=== PATIENT | male | born 1975 | race Caucasian/White ===

== ENCOUNTER 2021-07-09 05:50 | Inpatient (IN) | payer OTHER, SELFPAY ==
[2021-07-09] VITALS (40 sets, daily range): BP systolic 88–159; BP diastolic 54–104; PULSE 63–76; RESP 9–23; TEMP 36.7–37.3; O2SAT 95–100; BMI 29.7
--- NOTE | ~2021-07-09 | XR_ITS ---
XR chest 1V portable DATE: 07/09/2021 06:09 INDICATION: Chest pain TECHNIQUE: Portable upright AP chest on 07/09/2021 at 0603 hours COMPARISON: 06/08/2017 PA and lateral chest FINDINGS: Normal heart size. No hilar or mediastinal enlargement. No pulmonary infiltrate or consolid ation, pleural effusion or pulmonary vascular congestion or pneumothorax. IMPRESSION: No active cardiopulmonary disease Reviewed, dictated and finalized at location A.
--- NOTE | 2021-07-09 06:02 | ED.CHESTPAIN ---
HPI - Chest Pain General Chief Complaint: Chest Pain Stated Complaint: chest pain Time Seen by Provider: 07/09/21 06:02 Source: patient History of Present Illness HPI narrative: Patient presents with concern for heart attack. Patient reports he had chest pain for the past 2 days scribes a crushing sensation that radiates up his neck associated with mild shortness of breath and nausea. Reports prior SC many years ago that felt exactly like today's symptoms he was concerned so came to the ER for evaluation denies lightheadedness or dizziness he reports he took 11/05/2024 aspirins at home Related Data Home Medications Medication Instructions Recorded Confirmed aspirin 325 mg tablet 325 mg PO DAILY 04/03/20 atorvastatin 80 mg tablet 80 mg PO DAILY 04/03/20 carbamazepine 100 mg 300 mg PO Q12H tablet 04/03/20 tablet,extended release,12 hr cholecalciferol (vitamin D3) 125 125 mcg PO DAILY 04/03/20 mcg (5,000 unit) tablet duloxetine 60 mg capsule,delayed 60 mg PO DAILY 04/03/20 release fenofibrate 160 mg tablet 160 mg PO DAILY 04/03/20 gabapentin 800 mg tablet 800 mg PO DAILY 04/03/20 insulin lispro protamine-lispro 10 unit SUB-Q QAM 04/03/20 100 unit/mL (75-25) subcutaneous pen lisinopril 2.5 mg tablet 2.5 mg PO DAILY 04/03/20 metformin 500 mg tablet 500 mg PO BID 04/03/20 metoprolol tartrate 25 mg tablet 25 mg PO BID tablet 04/03/20 nitroglycerin 0.4 mg sublingual 0.4 mg SUBLINGUAL Q5M PRN 04/03/20 tablet omega-3 fatty acids 1,000 mg 1,000 mg PO DAILY 04/03/20 capsule pantoprazole 40 mg tablet,delayed 40 mg PO QAM 04/03/20 release prasugrel 10 mg tablet 10 mg PO DAILY 04/03/20 Allergies Allergy/AdvReac Type Severity Reaction Status Date / Time No Known Allergies Allergy Verified 07/09/21 06:13 Review of Systems Review of Systems: CONSTITUTIONAL: Denies fever, chills, or sweats. EYES: Denies visual changes, redness, or discharge. ENT: Denies rhinorrhea, congestion, sore throat, or otalgia. CARDIOVASCULAR: Reports chest pain RESPIRATORY: Denies cough GASTROINTESTINAL: Denies abdominal pain, nausea, vomiting, or diarrhea. GENITOURINARY: Denies dysuria or hematuria. SKIN: Denies rash or itching. MUSCULOSKELETAL: Denies back pain, joint pain, or myalgia. NEUROLOGIC: Denies headache, numbness, dizziness, or weakness. PSYCHIATRIC: Denies anxiety or depression. All systems reviewed & are unremarkable except as noted in HPI and below PMFSH Past Medical History Medical History Diabetes Hypertension Myocardial infarction Surgical History Surgical History H/O heart artery stent Hx of appendectomy Family History Family History Father Diabetes mellitus Cerebrovascular accident Mother Family history of rheumatoid arthritis Other Family history of alcoholism Family history of obesity Social History Social History Smoking status: Smoker, status unknown Alcohol intake: current Exam Narrative: GENERAL: Well-appearing, well-nourished, and in no acute distress. HEAD: Normocephalic, atraumatic. EYES: PERRLA and EOMI. ENT: Nares clear, no rhinorrhea or epistaxis. Mucous membranes moist. NECK: Supple. No masses. No JVD CHEST: Clear to auscultation. No respiratory distress. No wheezes rales or rhonchi HEART: Regular rate and rhythm. No murmur heard. Normal peripheral pulses. ABDOMEN: Soft, nontender, nondistended, normal active bowel sounds. EXTREMITIES: Normal range of motion. No edema. SKIN: Warm, dry, no rash. NEURO: No focal deficits. Alert and oriented x3. PSYCH: Normal mood and affect. Course Consultations Consultation #1: CODE STEMI Called Date: 07/09/21 Time: 05:57 Vital Signs Vital signs: Vital Signs Temperature 36.7 C 07/09/21 05:53
--- NOTE | 2021-07-09 06:05 | ECG_ITS ---
Measurements Intervals [place] Rate: 65 P: 27 WI: 170 QRS: 53 QRSD: 102 T: 87 QT: 375 QTc: 391 Interpretive Statements SINUS RHYTHM INFERIOR ST ELEVATION MYOCARDIAL INJURY- ACUTE SUBTLE ST ELEVATION IN ANTEROLATERAL LEADS ABNORMAL ECG Electronically Signed On 07-09-2021 6:19:15 CDT by Simon Mojica D.O.
[2021-07-09] MEDS: MORPHINE SULFATE (*CRX) 4 MG/ML INJ IV PUSH (06:13)
[2021-07-09 06:21] LABS: Basophils Absolute Auto 0.1 K/mm3 (0.0-0.1); Basophils Percent Auto 0.9 % (0.2-1.2); Eosinophils Absolute Auto 0.5 K/mm3 (0-0.3); Eosinophils Percent Auto 5.5 % (0-4.4); Hematocrit 44.3 % (42.0-52.0); Hemoglobin 15.8 g/dL (14.0-18.0); Immature Granulocyte Absolute 0.04 K/mm3 (0.00-0.031); Immature Granulocyte Percent A 0.4 % (0-0.5); Lymphocytes Absolute Auto 3.42 K/mm3 (0.9-3.2); Lymphocytes Percent Auto 37.1 % (18.3-44.2); Mean Corpuscular HGB Conc 35.7 g/dl (32-36); Mean Corpuscular Hemoglobin 32.5 pg (26-34); Mean Corpuscular Volume 91.2 fl (80-100); Mean Platelet Volume 9.8 fl (7.4-10.4); Monocytes Absolute Auto 0.5 K/mm3 (0.1-0.6); Monocytes Percent Auto 5.7 % (2.6-8.5); Neutrophils Absolute Auto 4.7 K/mm3 (1.3-6.7); Neutrophils Percent Auto 50.4 % (45.5-73.1); Platelet Count Result 272 k/mm3 (150-375); Red Blood Count 4.86 M/mm3 (4.6-6.20); Red Cell Distribution Width 12.5 % (11.5-14.5); White Blood Count 9.2 K/mm3 (4.5-10.0)
[2021-07-09] MEDS: HEPARIN SODIUM 5,000 UNITS/ML VIAL 4000 UNITS IV PUSH (06:25)
[2021-07-09] MEDS: TICAGRELOR 90 MG TABLET 180 MG PO (06:27)
[2021-07-09 06:32] LABS: Alanine Aminotransferase 21 U/L (4-50); Albumin Level 4.8 g/dL (3.5-5.1); Alkaline Phosphatase 78 U/L (38-126); Anion Gap 9 mmol/L (8-16); Aspartate Amino Transferase 27 U/L (17-59); Bilirubin,Total 1.3 mg/dL (0.2-1.3); Blood Urea Nitrogen 12 mg/dL (9-20); Calcium 9.1 mg/dL (8.4-10.2); Carbon Dioxide 24 mmol/L (22-30); Chloride 104 mmol/L (98-107); Cholesterol 248 mg/dL (0-200); Estimated CRCL calculation 174 ml/min; Estimated Glomerular Filt Rate > 60; Glucose 230 mg/dL (65-110); HDL Direct 36 mg/dL; Potassium 4.4 mmol/L (3.4-5.0); Sodium 137 mmol/L (137-145); Triglycerides 198 mg/dL (<150)
[2021-07-09 06:35] LABS: INR 0.9
--- NOTE | 2021-07-09 06:35 | PC.NURSE ---
Report to laboratory administrative director nurses at this time. laboratory administrative director nurses took pt to cath.
[2021-07-09 06:36] LABS: Partial Thromboplastin Time 29.1 SECONDS (22.3-36.8)
[2021-07-09] MEDS: ONDANSETRON INJ 4 MG/2 ML VIAL IV PUSH (06:38)
[2021-07-09 06:42] LABS: LDL Cholesterol Direct 161 mg/dL
[2021-07-09 06:45] LABS: Troponin I < 0.012 ng/mL (0.000-0.034)
--- NOTE | 2021-07-09 06:53 | PM.CNCAR ---
Assessment and Plan Additional Plan INF wall STEMI, HX of CAD and prior PCI, plan heparin, ASA, Ticagrelor and emergency [facility] History of Present Illness History of Present Illness Consult date/time: 07/09/21 06:53 Reason For Visit: chest pain Narrative: acute mid chest purcell, pressure/aching, sever 05/12, radiates ot neck, started 2 hours, no precipitating or relieving factors. Currently pain is 3/10. Hx of CAD and prior PCI * 3 stents, last in 2018. Review of Systems Review of Systems: All systems reviewed & are unremarkable except as noted in HPI and below PMFSH Past Medical History Medical History Diabetes Hypertension Myocardial infarction Surgical History Surgical History H/O heart artery stent Hx of appendectomy Family History Family History Father Diabetes mellitus Cerebrovascular accident Mother Family history of rheumatoid arthritis Other Family history of alcoholism Family history of obesity Social History Social History Smoking status: Smoker, status unknown Alcohol intake: current Meds Home Medications and Allergies Home Medications Medication Instructions Recorded Confirmed Type aspirin 325 mg tablet 325 mg PO DAILY 04/03/20 History atorvastatin 80 mg tablet 80 mg PO DAILY 04/03/20 History carbamazepine 100 mg 300 mg PO Q12H tablet 04/03/20 History tablet,extended release,12 hr cholecalciferol (vitamin D3) 125 125 mcg PO DAILY 04/03/20 History mcg (5,000 unit) tablet duloxetine 60 mg capsule,delayed 60 mg PO DAILY 04/03/20 History release fenofibrate 160 mg tablet 160 mg PO DAILY 04/03/20 History gabapentin 800 mg tablet 800 mg PO DAILY 04/03/20 History insulin lispro protamine-lispro 10 unit SUB-Q QAM 04/03/20 History 100 unit/mL (75-25) subcutaneous pen lisinopril 2.5 mg tablet 2.5 mg PO DAILY 04/03/20 History metformin 500 mg tablet 500 mg PO BID 04/03/20 History metoprolol tartrate 25 mg tablet 25 mg PO BID tablet 04/03/20 History niacin 1,000 mg tablet,extended 1,000 mg PO DAILY #30 tablet 04/03/20 Rx release nitroglycerin 0.4 mg sublingual 0.4 mg SUBLINGUAL Q5M PRN 04/03/20 History tablet omega-3 fatty acids 1,000 mg 1,000 mg PO DAILY 04/03/20 History capsule pantoprazole 40 mg tablet,delayed 40 mg PO QAM 04/03/20 History release prasugrel 10 mg tablet 10 mg PO DAILY 04/03/20 History Allergies Allergy/AdvReac Type Severity Reaction Status Date / Time No Known Allergies Allergy Verified 07/09/21 06:13 Vital Signs Vital Signs - 24 hr 07/09/21 05:53 07/09/21 05:59 07/09/21 06:00 Temperature 36.7 C Pulse Rate 71 66 Respiratory Rate 12 19 17 Blood Pressure 142/104 H 159/95 H Pulse Oximetry 100 100 100 07/09/21 06:01 07/09/21 06:11 Temperature Pulse Rate 68 68 Respiratory Rate 12 13 Blood Pressure 142/104 H Pulse Oximetry 100 100 Exam Const: General: comfortable and no acute distress Other: Able to lie flat HENMT: General nose exam: Normal nares present and no epistaxis Mouth: Yes moist mucous membranes Eyes: Sclera: sclerae normal Pupils: Equal, round and reactive pupils present Neck: Neck: supple and no JVD Carotids: no bruits Resp: Auscultation: clear to auscultation bilaterally and lung sounds not diminished Other: No chest wall tenderness Cardio: Rate: regular rate Rhythm: regular rhythm Heart sounds: no gallops, no murmurs and no rubs GI: GI Palp: Yes Soft to palpation and No Tenderness to palpation present (GI) Auscultation: normal bowel sounds Skin: General skin exam: normal color, rashes and/or lesions noted and no erythema Other: Warm Neuro: Cranial nerves: Yes Equal, round and reactive pupils present Speech: normal speech Other: No obvious foca
[2021-07-09 09:27] LABS: Basophils Absolute Auto 0.1 K/mm3 (0.0-0.1); Basophils Percent Auto 0.5 % (0.2-1.2); Eosinophils Absolute Auto 0.3 K/mm3 (0-0.3); Eosinophils Percent Auto 2.1 % (0-4.4); Hematocrit 43.1 % (42.0-52.0); Hemoglobin 14.7 g/dL (14.0-18.0); Immature Granulocyte Absolute 0.09 K/mm3 (0.00-0.031); Immature Granulocyte Percent A 0.7 % (0-0.5); Lymphocytes Absolute Auto 1.72 K/mm3 (0.9-3.2); Lymphocytes Percent Auto 14.3 % (18.3-44.2); Mean Corpuscular HGB Conc 34.1 g/dl (32-36); Mean Corpuscular Hemoglobin 31.6 pg (26-34); Mean Corpuscular Volume 92.7 fl (80-100); Mean Platelet Volume 9.9 fl (7.4-10.4); Monocytes Absolute Auto 0.4 K/mm3 (0.1-0.6); Monocytes Percent Auto 3.3 % (2.6-8.5); Neutrophils Absolute Auto 9.5 K/mm3 (1.3-6.7); Neutrophils Percent Auto 79.1 % (45.5-73.1); Platelet Count Result 243 k/mm3 (150-375); Red Blood Count 4.65 M/mm3 (4.6-6.20); Red Cell Distribution Width 12.2 % (11.5-14.5)
--- NOTE | 2021-07-09 10:29 | WPDMODSED ---
Moderate Sedation Note-Pt Data Patient Data Allergies Allergy/AdvReac Type Severity Reaction Status Date / Time No Known Allergies Allergy Verified 07/09/21 06:13 Home Medications Medication Instructions Recorded Confirmed Type aspirin 325 mg tablet 325 mg PO DAILY 04/03/20 History atorvastatin 80 mg tablet 80 mg PO DAILY 04/03/20 History carbamazepine 100 mg 300 mg PO Q12H tablet 04/03/20 History tablet,extended release,12 hr cholecalciferol (vitamin D3) 125 125 mcg PO DAILY 04/03/20 History mcg (5,000 unit) tablet duloxetine 60 mg capsule,delayed 60 mg PO DAILY 04/03/20 History release fenofibrate 160 mg tablet 160 mg PO DAILY 04/03/20 History gabapentin 800 mg tablet 800 mg PO DAILY 04/03/20 History insulin lispro protamine-lispro 10 unit SUB-Q QAM 04/03/20 History 100 unit/mL (75-25) subcutaneous pen lisinopril 2.5 mg tablet 2.5 mg PO DAILY 04/03/20 History metformin 500 mg tablet 500 mg PO BID 04/03/20 History metoprolol tartrate 25 mg tablet 25 mg PO BID tablet 04/03/20 History niacin 1,000 mg tablet,extended 1,000 mg PO DAILY #30 tablet 04/03/20 Rx release nitroglycerin 0.4 mg sublingual 0.4 mg SUBLINGUAL Q5M PRN 04/03/20 History tablet omega-3 fatty acids 1,000 mg 1,000 mg PO DAILY 04/03/20 History capsule pantoprazole 40 mg tablet,delayed 40 mg PO QAM 04/03/20 History release prasugrel 10 mg tablet 10 mg PO DAILY 04/03/20 History Current Medications: Active Medications Heparin Sodium (Porcine) (Heparin Sodium 5,000 Units/Ml Vial) 4,000 units IV PUSH PRN PRN PRN Reason: aPTT less than 55 seconds Heparin Sodium (Porcine) (Heparin Sodium 5,000 Units/Ml Vial) 3,500 units IV PUSH PRN PRN PRN Reason: aPTT 55 - 70 seconds Heparin Sodium/Dextrose (Heparin Sodium/D5w 100 Units/Ml) 25,000 units in 250 mls @ 10 mls/hr IV CONT .Q24H SCOTT; Protocol Sedation/Anesthesia: No previous sedation/anesthesia problems (including family history). FOR[facility]LY [facility], [facility] Past Medical History Medical History Diabetes Hypertension Myocardial infarction Surgical History Surgical History H/O heart artery stent Hx of appendectomy Family History Family History Father Diabetes mellitus Cerebrovascular accident Mother Family history of rheumatoid arthritis Other Family history of alcoholism Family history of obesity Social History Social History Smoking status: Smoker, status unknown Alcohol intake: current Mod Sed Physical Exam Physical Exam Pre Procedural Exam: Normal: Appearance, Eyes, Ears, Nose, Neck, Throat, Airway, Lungs, Heart Size, Heart Rate, Heart Rhythm, Neuro Exam, Abdomen, Liver, Kidneys, Spleen, Breasts, Genitalia, Extremities and Skin Hours since solid foods: 8 Hours since liquid intake: 8 Mallampati Classification: class 1 Internal Medicine - PN: Obj Da Vital Signs Vital Signs: Vital Signs - 24 hr 07/09/21 05:53 07/09/21 05:59 07/09/21 06:00 Temperature 36.7 C Pulse Rate 71 66 Respiratory Rate 12 19 17 Blood Pressure 142/104 H 159/95 H Pulse Oximetry 100 100 100 07/09/21 06:01 07/09/21 06:11 Temperature Pulse Rate 68 68 Respiratory Rate 12 13 Blood Pressure 142/104 H Pulse Oximetry 100 100 Meds/Results Medications: Active Medications Generic Name Dose Route Start Last Admin Trade Name Freq PRN Reason Stop Dose Admin Heparin Sodium (Porcine) 4,000 units 07/09/21 06:11 Heparin Sodium 5,000 Units/Ml Vial IV PUSH PRN PRN aPTT less than 55 seconds Heparin Sodium (Porcine) 3,500 units 07/09/21 06:11 Heparin Sodium 5,000 Units/Ml Vial IV PUSH PRN PRN aPTT 55 - 70 seconds Heparin Sodium/Dextrose 25,000 units in 250 mls @ 10 mls/hr 07/09/21 06:15 Heparin Sodium/D5w 100 Units
--- NOTE | 2021-07-09 10:30 | WPDCARDPROC ---
Cardiac Cath Procedure Note Date of procedure:: 07/09/21 Performing physician:: Dr. Camacho and Dr Camilo Ybarra MD case started by Dr. Camacho and completed by Dr. Ybarra date of service July 09, 2021 Indication:: STEMIchest pain Brief clinical history:: this is 45-year-old patient with past medical history of left circumflex artery stent, right coronary artery stent, diabetes, hypertension hyperlipidemia who presents with chest pain for a couple hours not relieved by nitroglycerin. He was taken to the garage laborer define anatomy. EKG shows inferior ST elevation Procedure Procedure performed:: 1-Moderate sedation that started at 6:56 a.m. and ended at 7:52 a.m. using 1mg of Versed and 125mcg fentanyl. The registered nurse was butch khanna. 2-Selective left and right coronary angiogram. 3-Left heart catheterization with measurement of LVEDP and measurement of gradient across aortic valve. 4- LV angiogram. 5- Balloon angioplasty of totally occluded mid left circumflex artery stent. 6- Deployment of a drug-eluting stent Orsiro 2.5 x 12 overlapping the mid left circumflex artery stent and distal to it. 7-Right common femoral arterial angiogram. Sedation/Medication given:: Moderate sedation. Access site:: Right common femoral artery. Estimated blood loss:: 10cc Procedure note:: this puncture was done by Dr. Camacho. After informed consent patient was brought in to garage laborer with the was draped and prepped in usual manner. Moderate sedation was given and the right groin was infiltrated using 1% lidocaine. Six Kosovan sheath was obtained using micropuncture needle and the modified Seldinger technique. Selective left coronary angiogram was done using JL4 catheter with the tip of the catheter placed in the left main coronary artery. Selective right coronary angiogram was done using JR4 catheter with the tip of the catheter placed to the right coronary artery. after that 6 Kosovan guide catheter CLS 3.5 was engaged in the left main. Then coronary wire Sputnik8 was advanced to the distal left circumflex artery. Balloon angioplasty was done using noncompliant balloon 2.5 x 12 with jain of BANDAR 3 flow. Then attempted to deploy a stent to distal left circumflex artery but was not successful due to poor guide support. At that time Kosovan 6 Kosovan GuideLiner was used managed successfully to deliver the stent to distal circumflex artery.then deployment of drug-eluting stent to distal left circumflex artery overlapping the mid left circumflex artery stent using Orsiro 2.5x15. Deployment under nominal pressure for 25 seconds. this portion done by Dr. Ybarra: then after that I took over the case because Dr. Vargas had to leave. post dilatation of the stent was done using 3 by20 noncompliant balloon. post dilatation was done of the proximal stent, the overlap segment between the new stent and the old stent. Inflations under nominal pressure for 25 seconds each time. Two inflations. Selective left coronary angiogram done shows excellent deployment of stent. After that 5 Kosovan pigtail catheter was advanced across the aortic valve into the left ventricle with measurement of LVEDP and measurement of gradient across aortic valve. LV angiogram done as well.Right common femoral arterial angiogram was done. Findings:: 1- left coronary artery is a large artery that divides into large LAD, large circumflex artery. Left main is Free of disease. 2- left anterior descending artery is a large artery that runs and wraps around the apex. Has 30 to 40% mid segment. 3- leftcircumflex artery is a large artery . there is a long stent in the mid segment of the left circumflex artery and it is totally occluded in the middle of the stent. BANDAR flow 0. After opening the stent was a lesion about 80% distal to the stent. 4- right coronary artery is Large artery and dominant. There is proximal stent. Proximal to the stent and at the initial porti
--- NOTE | 2021-07-09 11:51 | ECG_ITS ---
Measurements Intervals [place] Rate: 73 P: 42 KS: 175 QRS: 262 QRSD: 98 T: 74 QT: 372 QTc: 411 Interpretive Statements SINUS RHYTHM CONSIDER INFERIOR INFARCT, AGE INDETERMINATE BASELINE ARTIFACT- II, III, AVL, AVF ABNORMAL ECG Electronically Signed On 07-09-2021 13:02:59 CDT by Simon Mojica D.O.
--- NOTE | 2021-07-09 12:10 | WPDCNINT ---
Assessment and Plan Assessment and plan (1) ST elevation (STEMI) myocardial infarction: Qualifiers: Involved coronary artery: unspecified coronary artery Qualified Code(s): I21.3 - ST elevation (STEMI) myocardial infarction of unspecified site Code(s): I21.3 - ST elevation (STEMI) myocardial infarction of unspecified site Status: Acute Assessment and Plan: S/P cardiac catheterization and Balloon angioplasty of totally occluded mid left circumflex artery stent. Deployment of a drug-eluting stent Orsiro 2.5 x 12 overlapping the mid left circumflex artery stent and distal to it. Patient also has RCA 90% stenosis which Cardiology is planning as a staged procedure This is patient's 3rd GA Continue dual antiplatelet therapy, ARASELI-inhibitor, statin, beta-vanesa Repeat EKG done this morning shows resolution of ST elevation inferior leads Check echo ICU telemetry monitoring Patient was strongly encouraged to quit smoking Hemodynamically stable at this time and chest pain-free (2) Hypertension: Code(s): I10 - Essential (primary) hypertension Status: Acute Assessment and Plan: Continue lisinopril and metoprolol (3) Diabetes: Code(s): E11.9 - Type 2 diabetes mellitus without complications Status: Acute Assessment and Plan: Check HbA1c Sliding scale insulin (4) Tobacco abuse: Code(s): Z72.0 - Tobacco use Status: Acute Assessment and Plan: Patient was encouraged and counseled to quit smoking (5) Hyperlipidemia: Code(s): E78.5 - Hyperlipidemia, unspecified Status: Acute Assessment and Plan: Continue Lipitor fenofibrate and niacin Additional Plan DVT prophylaxis -SCDs. Anticipate patient to be mobile once the sheath his out Heart healthy diet Games Manager Consult Note Consult date: 07/09/21 Time Seen: 12:00 HPI: Enzo Pham is a 45 year old male with past medical history of coronary disease, GA needing stenting x2 and smoking presented this morning to ER with chief complaint of jaw pain from last 2 days. Patient states that he has been having jaw pain for last 2 days which is intermittent and similar to the pain on his last to [facility]. Today the pain was worse a and a was as stated with nausea but no vomiting and shortness of breath. No palpitation no aggravating or relieving factors. Pain radiated to his back. Hence patient presented to ER In ED patient was diagnosed with inferior ST segment elevation GA and Cardiology was called. Patient underwent cardiac catheterization and had stent placed in his circumflex artery. Patient now admitted to ICU for further evaluation management. He currently denies any complaints and states his pain has resolved. Review of system was positive for feeling anxious about having multiple heart attacks. All other Systems reviewed and negative Patient received [employer] vaccine for COVID-19 Review of Systems Review of Systems: All systems reviewed & are unremarkable except as noted in HPI and below (HPI) [facility] Past Medical History Medical History (Updated 07/09/21 @ 12:41 by Finesse Frank MD) Diabetes Hypertension Myocardial infarction Surgical History Surgical History H/O heart artery stent Hx of appendectomy Family History Family History Father Diabetes mellitus Cerebrovascular accident Mother Family history of rheumatoid arthritis Other Family history of alcoholism Family history of obesity Social History Social History Smoking packs per day: 1 Smoking cigarettes per day: 20.0 Years smoked: 25 Smoking pack-years: 25.00 Smoking status: Current every day smoker Tobacco type: cigarettes Alcohol intake: current Drinks per week: 1 Substance use: never Substance use type: does not use Spiritual c
[2021-07-09] MEDS: SODIUM CHLORIDE 0.9% IV 1,000 ML 125 ML IV CONT (13:04)
[2021-07-09 13:32] LABS: Glucose Point of Care 168 mg/dl (65-105)
[2021-07-09 13:37] LABS: Partial Thromboplastin Time 30.5 SECONDS (22.3-36.8)
[2021-07-09 13:38] LABS: Hemoglobin A1C 9.1 % (<5.7)
[2021-07-09] MEDS: FENOFIBRATE 160 MG TABLET PO (14:41)
[2021-07-09] MEDS: CHOLECALCIFEROL 1,000 UNITS TABLET 5000 UNITS PO (14:42)
[2021-07-09] MEDS: NIACIN SA 500 MG TABLET 1000 MG PO (14:42)
[2021-07-09] MEDS: OMEGA 3 POLYUNSAT FATTY ACIDS 1 GM CAP PO (14:42)
[2021-07-09] MEDS: GABAPENTIN 400 MG CAPSULE 800 MG PO (14:42)
[2021-07-09] MEDS: lisinopriL 2.5 MG TABLET PO (14:42)
--- NOTE | 2021-07-09 15:46 | PC.NURSE ---
Cardiopulmonary Rehab Services flyer was given to patient in admission folder.
--- NOTE | 2021-07-09 15:46 | ADMGEN ---
This patient, Enzo Pham, was admitted to Intensive Care Unit-3 on 07/09/21 at 0830 from the screedman/laborer. Patient/family oriented to hospital policies and general routines including ID bracelet, bed and alarms, visiting hours, pain management, procedures, bathroom and other care routines, personal items, smoking policy, room service/diet, and visiting hours. Information on how to activate the Rapid Response Team has been discussed. Patient/Family are encouraged to report perceived risks to care and to ask questions if they do not understand what they are told or what they should do.
[2021-07-09] MEDS: LUBIPROSTONE 8 MCG CAPSULE PO (17:28)
[2021-07-09] MEDS: metFORMIN HCL 500 MG TABLET 1000 MG PO (17:29)
[2021-07-09 17:32] LABS: Glucose Point of Care 197 mg/dl (65-105)
[2021-07-09] MEDS: TICAGRELOR 90 MG TABLET PO (20:07)
[2021-07-09] MEDS: METOPROLOL TARTRATE 25 MG TABLET PO (20:07)
[2021-07-09 20:12] LABS: Glucose Point of Care 185 mg/dl (65-105)
[2021-07-10] VITALS (18 sets, daily range): BP systolic 95–120; BP diastolic 58–79; PULSE 60–112; RESP 9–22; TEMP 35.7–37.1; O2SAT 96–100
[2021-07-10 04:23] LABS: Basophils Absolute Auto 0.1 K/mm3 (0.0-0.1); Basophils Percent Auto 0.5 % (0.2-1.2); Eosinophils Absolute Auto 0.3 K/mm3 (0-0.3); Eosinophils Percent Auto 2.6 % (0-4.4); Hematocrit 39.5 % (42.0-52.0); Hemoglobin 13.6 g/dL (14.0-18.0); Immature Granulocyte Absolute 0.08 K/mm3 (0.00-0.031); Immature Granulocyte Percent A 0.8 % (0-0.5); Lymphocytes Absolute Auto 2.39 K/mm3 (0.9-3.2); Lymphocytes Percent Auto 24.9 % (18.3-44.2); Mean Corpuscular HGB Conc 34.4 g/dl (32-36); Mean Corpuscular Hemoglobin 32.2 pg (26-34); Mean Corpuscular Volume 93.6 fl (80-100); Mean Platelet Volume 9.6 fl (7.4-10.4); Monocytes Absolute Auto 0.5 K/mm3 (0.1-0.6); Monocytes Percent Auto 5.5 % (2.6-8.5); Neutrophils Absolute Auto 6.3 K/mm3 (1.3-6.7); Neutrophils Percent Auto 65.7 % (45.5-73.1); Platelet Count Result 220 k/mm3 (150-375); Red Blood Count 4.22 M/mm3 (4.6-6.20); Red Cell Distribution Width 12.4 % (11.5-14.5); White Blood Count 9.6 K/mm3 (4.5-10.0)
[2021-07-10 04:33] LABS: Anion Gap 6 mmol/L (8-16); Blood Urea Nitrogen 14 mg/dL (9-20); Calcium 8.6 mg/dL (8.4-10.2); Carbon Dioxide 26 mmol/L (22-30); Chloride 103 mmol/L (98-107); Estimated CRCL calculation 174 ml/min; Estimated Glomerular Filt Rate > 60; Glucose 202 mg/dL (65-110); Magnesium 1.6 mg/dL (1.6-2.3); Potassium 4.1 mmol/L (3.4-5.0); Sodium 135 mmol/L (137-145)
--- NOTE | 2021-07-10 07:00 | ECG_ITS ---
Measurements Intervals [place] Rate: 60 P: 25 MN: 183 QRS: -63 QRSD: 98 T: 45 QT: 398 QTc: 398 Interpretive Statements SINUS RHYTHM LEFT ANTERIOR FASCICULAR BLOCK CONSIDER INFERIOR INFARCT, AGE INDETERMINATE BORDERLINE T WAVE ABNORMALITY- HIGH LATERAL LEADS ABNORMAL ECG Electronically Signed On 07-10-2021 10:35:12 CDT by Simon Mojica D.O.
--- NOTE | 2021-07-10 08:12 | PM.PNCARD ---
Progress Note: A&P Assessment and Plan (1) ST elevation (STEMI) myocardial infarction: Qualifiers: Involved coronary artery: unspecified coronary artery Qualified Code(s): I21.3 - ST elevation (STEMI) myocardial infarction of unspecified site Code(s): I21.3 - ST elevation (STEMI) myocardial infarction of unspecified site Status: Acute Assessment and Plan: Presented with severe substernal chest pain. Evidence of inferior wall MO on EKG. Was taken emergently to the tag and label cutter for coronary angiography and possible PCI. Previously placed left circumflex artery stent was totally occluded, this was addressed with balloon angioplasty and placement of a drug-eluting stent in an overlapping fashion. There is 90% stenosis the RCA-a staged intervention is planned. Continue aspirin Continue Brilinta Continue atorvastatin (2) Hypertension: Code(s): I10 - Essential (primary) hypertension Status: Acute Assessment and Plan: At goal. Continue lisinopril Continue metoprolol (3) Tobacco abuse: Code(s): Z72.0 - Tobacco use Status: Acute Assessment and Plan: Counseling performed (4) Hyperlipidemia: Code(s): E78.5 - Hyperlipidemia, unspecified Status: Acute Assessment and Plan: On statin Additional Plan Stable overnight with no acute events. Okay to downgrade to IMU status today. Subjective Date/time seen: 07/10/21 08:12 Cardiology follow up for STEMI Date of service 07/10/2021: No acute events overnight. Feeling well today - no complaints. Denies any chest pain, shortness of breath. Has ambulated in the room without difficulty. Review of Systems Review of Systems: All systems reviewed & are unremarkable except as noted in HPI and below Exam Const: General: comfortable and no acute distress HENMT: Head: normal to inspection General nose exam: Normal nares present and no epistaxis Mouth: Yes moist mucous membranes Eyes: Sclera: sclerae normal Pupils: Equal, round and reactive pupils present Neck: Neck: supple and no JVD Carotids: no bruits Resp: Effort & Inspection: normal respiratory effort Auscultation: clear to auscultation bilaterally Cardio: Rate: regular rate Rhythm: regular rhythm Heart sounds: no murmurs GI: Auscultation: normal bowel sounds Skin: General skin exam: normal color, rashes and/or lesions noted and no erythema Other: Right groin catheter insertion site free from bleeding, hematoma, bruit. Neuro: General: patient oriented x3 Cranial nerves: Yes Equal, round and reactive pupils present Speech: normal speech Other: No obvious focal deficit or facial asymmetry Extrem: General: no edema Other: Normal capillary refills Intact distal pulses. Objective Data Vital Signs Vital Signs: Vital Signs - 24 hr 07/09/21 08:30 07/09/21 08:45 07/09/21 09:12 Temperature Pulse Rate 73 72 73 Pulse Rate [Bilateral Pedal (Dorsalis Pedis)] 73 72 Respiratory Rate 22 H 15 21 H Blood Pressure 109/68 115/66 115/78 Pulse Oximetry 95 97 98 07/09/21 09:15 07/09/21 09:30 07/09/21 09:45 Temperature Pulse Rate 70 73 71 Pulse Rate [Bilateral Pedal (Dorsalis Pedis)] 71 71 Respiratory Rate 15 15 20 Blood Pressure 114/73 100/69 118/66 Pulse Oximetry 99 98 99 07/09/21 10:00 07/09/21 10:15 07/09/21 10:45 Temperature Pulse Rate 72 76 70 Pulse Rate [Bilateral Pedal (Dorsalis Pedis)] 70 Respiratory Rate 13 16 14 Blood Pressure 105/68 107/65 114/70 Pulse Oximetry 100 98 97 07/09/21 11:00 07/09/21 11:15 07/09/21 11:30 Temperature Pulse Rate 69 68 70 Pulse Rate [Bilateral Pedal (Dorsalis Pedis)] Respiratory Rate 11 L 13 13 Blood Pressure 109/79 104/63 103/63 Pulse Oximetry 97 97 98 07/09/21 11:45 07/09/21 12:00 07/09/21 12:45 Temperature Pulse Rate 69 70 Pulse Rate [Bilateral Pedal (Dorsalis Pedis)] 70 68 Respiratory Rate 16 21 H Blood Pressure 99/66 L 105/69 Pulse Oximetry 97
[2021-07-10] MEDS: MAGNESIUM SULF 2 GM/WATER 50ML 2 GM/50 ML BAG IVPB (08:20)
[2021-07-10] MEDS: ASPIRIN 81 MG ENTERIC TABLET PO (08:36)
[2021-07-10] MEDS: ATORVASTATIN 40 MG TABLET 80 MG PO (08:36)
[2021-07-10] MEDS: OMEGA 3 POLYUNSAT FATTY ACIDS 1 GM CAP PO (08:37)
[2021-07-10] MEDS: NIACIN SA 500 MG TABLET 1000 MG PO (08:37)
[2021-07-10] MEDS: metFORMIN HCL 500 MG TABLET 1000 MG PO ×2 (08:38→16:39)
[2021-07-10] MEDS: METOPROLOL TARTRATE 25 MG TABLET PO ×2 (08:38→22:25)
[2021-07-10] MEDS: GABAPENTIN 400 MG CAPSULE 800 MG PO (08:39)
[2021-07-10] MEDS: CHOLECALCIFEROL 1,000 UNITS TABLET 5000 UNITS PO (08:39)
[2021-07-10] MEDS: lisinopriL 2.5 MG TABLET PO (08:39)
[2021-07-10] MEDS: LUBIPROSTONE 8 MCG CAPSULE PO ×2 (08:40→16:39)
[2021-07-10] MEDS: TICAGRELOR 90 MG TABLET PO ×2 (08:40→22:25)
[2021-07-10] MEDS: FENOFIBRATE 160 MG TABLET PO (08:40)
[2021-07-10 08:44] LABS: Glucose Point of Care 192 mg/dl (65-105)
--- NOTE | 2021-07-10 09:09 | WPDINTPN ---
Progress Note: A&P Assessment and Plan (1) ST elevation (STEMI) myocardial infarction: Qualifiers: Involved coronary artery: unspecified coronary artery Qualified Code(s): I21.3 - ST elevation (STEMI) myocardial infarction of unspecified site Code(s): I21.3 - ST elevation (STEMI) myocardial infarction of unspecified site Status: Acute Assessment and Plan: S/P cardiac catheterization and Balloon angioplasty of totally occluded mid left circumflex artery stent. Deployment of a drug-eluting stent Orsiro 2.5 x 12 overlapping the mid left circumflex artery stent and distal to it. Patient also has RCA 90% stenosis which Cardiology is planning as a staged procedure This is patient's 3rd MS Continue dual antiplatelet therapy, ARASELI-inhibitor, statin, beta-vanesa Repeat EKG done post catheterization showed resolution of ST elevation inferior leads Pending echo Patient was strongly encouraged to quit smoking Hemodynamically stable at this time and chest pain-free (2) Hypertension: Code(s): I10 - Essential (primary) hypertension Status: Acute Assessment and Plan: Continue lisinopril and metoprolol (3) Diabetes: Code(s): E11.9 - Type 2 diabetes mellitus without complications Status: Acute Assessment and Plan: Check HbA1c Sliding scale insulin (4) Tobacco abuse: Code(s): Z72.0 - Tobacco use Status: Acute Assessment and Plan: Patient was encouraged and counseled to quit smoking (5) Hyperlipidemia: Code(s): E78.5 - Hyperlipidemia, unspecified Status: Acute Assessment and Plan: Continue Lipitor fenofibrate and niacin (6) Hypomagnesemia: Code(s): E83.42 - Hypomagnesemia Status: Acute Assessment and Plan: 2g Mag sulfate IVPB ordered Additional Plan DVT prophylaxis -SCDs while in bed patient is ambulating Heart healthy diet Transfer out of ICU today Subjective Date/time seen: 07/10/21 Overnight events reviewed. Afebrile Groin sheath was removed yesterday No new complaints at this time patient is asymptomatic. Denies any chest pain shortness of breath cough palpitation abdominal pain nausea vomiting. All the systems reviewed and were negative Review of Systems Review of Systems: All systems reviewed & are unremarkable except as noted in HPI and below (HPI) Exam Narrative: General: Pt is alert awake and in NAD Lungs/Chest: Trachea central Clear BS B/L, No crackles or wheezing. Cardiac: RRR. Normal S1 S2. No murmurs Circulation: Pedal pulses are intact and symmetrical. Abdomen: Normal bowel sounds.. Soft. NT. ND. Extremities: No clubbing, cyanosis or edema. Warmright femoral area with no hematoma or swelling : Elise in place Neurologic: Follows commands. Moves all 4 extremities PERRL Skin: No Rash Objective Data Vital Signs Vital Signs: Vital Signs - 24 hr 07/09/21 09:12 07/09/21 09:15 07/09/21 09:30 Temperature Pulse Rate 73 70 73 Pulse Rate [Bilateral Pedal (Dorsalis Pedis)] 71 Respiratory Rate 21 H 15 15 Blood Pressure 115/78 114/73 100/69 Pulse Oximetry 98 99 98 07/09/21 09:45 07/09/21 10:00 07/09/21 10:15 Temperature Pulse Rate 71 72 76 Pulse Rate [Bilateral Pedal (Dorsalis Pedis)] 71 Respiratory Rate 20 13 16 Blood Pressure 118/66 105/68 107/65 Pulse Oximetry 99 100 98 07/09/21 10:45 07/09/21 11:00 07/09/21 11:15 Temperature Pulse Rate 70 69 68 Pulse Rate [Bilateral Pedal (Dorsalis Pedis)] 70 Respiratory Rate 14 11 L 13 Blood Pressure 114/70 109/79 104/63 Pulse Oximetry 97 97 97 07/09/21 11:30 07/09/21 11:45 07/09/21 12:00 Temperature Pulse Rate 70 69 70 Pulse Rate [Bilateral Pedal (Dorsalis Pedis)] 70 Respiratory Rate 13 16 21 H Blood Pressure 103/63 99/66 L 105/69 Pulse Oximetry 98 97 99 07/09/21 12:45 07/09/21 13:00 07/09/21 13:45 Temperature Pulse Rate 66 Pulse Rate [Bilateral Pedal (Dorsalis Pedis)] 68 74 Respirat
--- NOTE | 2021-07-10 11:20 | PC.NURSE ---
This patient, Enzo Pham, was transferred to [facility] [place] [facility] [place] on 07/10/21 at 1115 via wheelchair without issue. Personal belongings sent with patient. Report given to ADAIR Villarreal. Appropriate documentation sent with patient.
[2021-07-10 13:33] LABS: Glucose Point of Care 153 mg/dl (65-105)
[2021-07-10] MEDS: INSULIN ASPART (*BKC) 100 UNITS/ML SUB-Q (16:39)
[2021-07-10 16:48] LABS: Glucose Point of Care 272 mg/dl (65-105)
[2021-07-10 21:55] LABS: Glucose Point of Care 157 mg/dl (65-105)
[2021-07-11] VITALS (9 sets, daily range): BP systolic 110–125; BP diastolic 64–69; PULSE 58–64; RESP 14–60; TEMP 36.1–36.8; O2SAT 98–100
[2021-07-11] MEDS: metFORMIN HCL 500 MG TABLET 1000 MG PO (08:26)
[2021-07-11] MEDS: CHOLECALCIFEROL 1,000 UNITS TABLET 5000 UNITS PO (08:27)
[2021-07-11] MEDS: OMEGA 3 POLYUNSAT FATTY ACIDS 1 GM CAP PO (08:27)
[2021-07-11] MEDS: ATORVASTATIN 40 MG TABLET 80 MG PO (08:28)
[2021-07-11] MEDS: GABAPENTIN 400 MG CAPSULE 800 MG PO (08:28)
[2021-07-11] MEDS: NIACIN SA 500 MG TABLET 1000 MG PO (08:28)
[2021-07-11] MEDS: LUBIPROSTONE 8 MCG CAPSULE PO (08:28)
[2021-07-11] MEDS: METOPROLOL TARTRATE 25 MG TABLET PO (08:29)
[2021-07-11] MEDS: ASPIRIN 81 MG ENTERIC TABLET PO (08:29)
[2021-07-11] MEDS: FENOFIBRATE 160 MG TABLET PO (08:29)
[2021-07-11] MEDS: lisinopriL 2.5 MG TABLET PO (08:30)
[2021-07-11] MEDS: TICAGRELOR 90 MG TABLET PO (08:30)
[2021-07-11 08:53] LABS: Glucose Point of Care 182 mg/dl (65-105)
--- NOTE | 2021-07-11 09:38 | ECHO_ITS ---
Patient Info Name: Enzo Pham Age: 45 years : 1975 Gender: Male Ht: 72 in Wt: 212 lbs BSA: 2.23 m2 HR: 60 bpm BP: 110 / 64 mmHg Heart Rhythm: Sinus Rhythm Technical Quality: Good Exam Date: 07/11/2021 10:46 AM Exam Location: [facility] Exam Room: 214 Patient Status: Inpatient Admit Date: 07/09/2021 Staff Ordering Physician: Oskar Yang MD Sales Marketing Director: Elida Oconnor RDCS Attending Provider: Miguel Bradley MD Referring Physician: Trey SAAVEDRA; Exam Type: CA echo doppler color flow Study Info Indications - S/P STEMI S/P CATH /ANGIOPLASTY Complete two-dimensional, color flow and Doppler transthoracic echocardiogram is performed. Summary 1. Complete two-dimensional, color flow and Doppler transthoracic echocardiogram is performed. 2. Left ventricular chamber dimension is normal. 3. Left ventricular systolic function is normal, estimated at 65-70% with hypokinesis of the basal inferior wall.. 4. There is mildly increased left ventricular wall thickness. 5. The left ventricular diastolic function is normal. 6. There is trace tricuspid valve regurgitation. 7. No pulmonary hypertension, estimated pulmonary arterial systolic pressure is 22 mmHg. 8. There is trace mitral valve regurgitation. 9. There is no aortic valve stenosis. Left Ventricle Left ventricular chamber dimension is normal. Left ventricular systolic function is normal, estimated at 65-70% with hypokinesis of the basal inferior wall.. There is mildly increased left ventricular wall thickness. The left ventricular diastolic function is normal. Right Ventricle Right ventricular chamber dimension is normal. Right ventricular systolic function is normal. Left Atria Left atrial chamber dimension is normal. Right Atria Right atrial chamber dimension is normal. Aortic Valve The aortic valve is probable trileaflet. There is no aortic valve stenosis. There is no aortic valve regurgitation. Pulmonic Valve The pulmonic valve is normal. There is trace pulmonic regurgitation. Mitral Valve The mitral valve has normal leaflets. There is trace mitral valve regurgitation. Tricuspid Valve The tricuspid valve leaflets are normal. There is trace tricuspid valve regurgitation. No pulmonary hypertension, estimated pulmonary arterial systolic pressure is 22 mmHg. Pericardium/Pleural The pericardium appears normal. There is trivial pericardial effusion. Inferior Vena Cava Normal inferior vena cava with >50% collapse upon inspiration consistent with normal right atrial pressure, 5 mmHg. Aorta The aortic root size at the sinus of Valsalva is not well visualized. Left Ventricular Outflow Tract Name Value Normal LVOT 2D LVOT Diameter 2.0 cm LVOT Doppler LVOT Peak Gradient 4 mmHg LVOT Mean Gradient 2 mmHg LVOT VTI 21 cm LVOT VTI/AV VTI Ratio 0.9 LVOT Stroke Volume 66 ml LVOT CO 13.4 l/min
--- NOTE | 2021-07-11 10:03 | PM.PNCARD ---
Progress Note: A&P Assessment and Plan (1) ST elevation (STEMI) myocardial infarction: Qualifiers: Involved coronary artery: unspecified coronary artery Qualified Code(s): I21.3 - ST elevation (STEMI) myocardial infarction of unspecified site Code(s): I21.3 - ST elevation (STEMI) myocardial infarction of unspecified site Status: Acute Assessment and Plan: Presented with severe substernal chest pain. Evidence of inferior wall OR on EKG. Was taken emergently to the laborer [facility] for coronary angiography and possible PCI. Previously placed left circumflex artery stent was totally occluded, this was addressed with balloon angioplasty and placement of a drug-eluting stent in an overlapping fashion. There is 90% stenosis the RCA-a staged intervention is planned. Continue aspirin Continue Brilinta Continue atorvastatin Counseled on the critical importance of compliance with all medications particular aspirin, Brilinta and to not miss a single dose of his medications due to risk for stent thrombosis and myocardial infarction. Patient verbalized understanding and agreed. Check LV function by 2D echocardiogram prior to discharge. Will review with recommendations as appropriate. Patient will be discharged home in stable and improved condition to follow up with Dr. Mojica as an outpatient as scheduled. Reviewed post catheterization precautions and restrictions to reduce bleeding complications which can be very serious as explained. He understood and agreed. (2) Hypertension: Code(s): I10 - Essential (primary) hypertension Status: Acute Assessment and Plan: At goal. Continue lisinopril Continue metoprolol (3) Tobacco abuse: Code(s): Z72.0 - Tobacco use Status: Acute Assessment and Plan: Counseling performed absolute and immediate smoking cessation. (4) Hyperlipidemia: Code(s): E78.5 - Hyperlipidemia, unspecified Status: Acute Assessment and Plan: On statin goal LDL less than 70. Subjective Date/time seen: Date of service: 07/11/21 10:03 Follow-up status post STEMI Patient denies chest pain, shortness of breath, dizziness, leg pain, fevers or chills. No palpitations. Telemetry unremarkable with occasional PVCs, one 4 beat run nonsustained VT asymptomatic on telemetry. Review of Systems Review of Systems: All systems reviewed & are unremarkable except as noted in HPI and below Constitutional: Constitutional: Reports as per HPI and Reports no additional constitutional complaints Eyes: Eyes: Reports as per HPI and Reports no additional eye complaints ENT: Reports system reviewed and no additional complaints, except as documented and Reports as per HPI Cardiovascular: Cardiovascular: Reports as per HPI and Reports no additional cardiovascular complaints Respiratory: Respiratory: Reports as per HPI and Reports no additional respiratory complaints Gastrointestinal: Gastrointestinal: Reports as per HPI and Reports no additional gastrointestinal complaints Genitourinary: Genitourinary: Reports no additional male genitourinary complaints and Reports as per HPI Musculoskeletal: Musculoskeletal: Reports no additional musculoskeletal complaints and Reports as per HPI Integumentary/Breasts: Skin/Breast: Reports system reviewed and no additional complaints, except as docu and Reports as per HPI Neurologic: Reports system reviewed and no additional complaints, except as documented and Reports as per HPI Psychiatric: Psychiatric: Reports no additional psychiatric complaints and Reports as per HPI Endocrine: Endocrine: Reports no additional endocrine complaints and Reports as per HPI Hematologic/Lymphatic: Hematologic/Lymphatic: Reports no additional hematologic/lymphatic complaints and Reports as per HPI Allergic/Immunologic: Allergic/Immunologic: Reports no additional allergic/immunologic complaints and Reports as per HPI Exam Const: General: co
--- NOTE | 2021-07-11 10:07 | PM.DS ---
DS: Admitting Diagnosis Discharge Date 07/11/[address]-elevation PR CAD Tobacco abuse Hypertension Dyslipidemia DS: Discharge Diagnosis Discharge Diagnosis (1) ST elevation (STEMI) myocardial infarction: Qualifiers: Involved coronary artery: unspecified coronary artery Qualified Code(s): I21.3 - ST elevation (STEMI) myocardial infarction of unspecified site Code(s): I21.3 - ST elevation (STEMI) myocardial infarction of unspecified site Status: Acute Assessment and Plan: Presented with severe substernal chest pain. Evidence of inferior wall PR on EKG. Was taken emergently to the cardiac cath technician for coronary angiography and possible PCI. Previously placed left circumflex artery stent was totally occluded, this was addressed with balloon angioplasty and placement of a drug-eluting stent in an overlapping fashion. There is 90% stenosis the RCA-a staged intervention is planned. Continue aspirin Continue Brilinta Continue atorvastatin Counseled on the critical importance of compliance with all medications particular aspirin, Brilinta and to not miss a single dose of his medications due to risk for stent thrombosis and myocardial infarction. Patient verbalized understanding and agreed. Check LV function by 2D echocardiogram prior to discharge. Will review with recommendations as appropriate. Patient will be discharged home in stable and improved condition to follow up with Dr. Mojica as an outpatient as scheduled. Reviewed post catheterization precautions and restrictions to reduce bleeding complications which can be very serious as explained. He understood and agreed. (2) Hypertension: Code(s): I10 - Essential (primary) hypertension Status: Acute Assessment and Plan: At goal. Continue lisinopril Continue metoprolol (3) Tobacco abuse: Code(s): Z72.0 - Tobacco use Status: Acute Assessment and Plan: Counseling performed absolute and immediate smoking cessation. (4) Hyperlipidemia: Code(s): E78.5 - Hyperlipidemia, unspecified Status: Acute Assessment and Plan: On statin goal LDL less than 70. DS: Summary Hospital Course Reason for hospitalization: ST-elevation myocardial infarction Hospital Course: Patient admitted suffering ST-elevation myocardial infarction with complete occlusion of circumflex status post drug-eluting stent overlapping mid circumflex proximally with 2.5 x 12 mm and distally 2.5 x 15 mm Orsiro without complication. Patient tolerated the procedure well from 07/09/2021. Patient did well and was observed for least 48 hours. No sustained ventricular tachycardia identified. No recurrent chest pain shortness of breath. Arteriotomy site intact no bleeding hematoma or other complications. 2D echocardiogram obtained prior to discharge revealed preserved LV function EF 65-70% with basal inferior hypokinesis. Patient had a residual 90% RCA stenosis with recommendation for staged intervention as an outpatient. Patient was counseled extensively on the importance of compliance with medication, recommendations follow-up. Patient verbalized understanding and agreed. Patient was subsequent discharged home stable and improved condition. Time Spent with Patient Time attestation: Total time spent providing and/or coordinating discharge services: 32 minutes Exam Const: General: comfortable and no acute distress Orientation/consciousness: patient oriented x3 HENMT: Head: normal to inspection General nose exam: Normal nares present and no epistaxis Mouth: Yes moist mucous membranes Eyes: Sclera: sclerae normal Pupils: Equal, round and reactive pupils present Neck: Neck: supple and no JVD Carotids: no bruits Resp: Effort & Inspection: normal respiratory effort Auscultation: clear to auscultation bilaterally Cardio: Rate: regular rate Rhythm: regular rhythm Heart sounds: no murmurs GI: Auscultation: normal noam
[2021-07-11 13:05] LABS: Glucose Point of Care 164 mg/dl (65-105)
== END 2021-07-11 13:52 | disposition home or self-care (01) | DRG 247 ==
LOC: ANHED 06:23 → ANHICU 12:01 → ANHIMU 07-11 10:03 → ANHICU 07-13 13:57 → ANHIMU 07-13 13:57
PROVIDERS: Internal Medicine; Internal Medicine Cardiovascular Disease; Admitting Provider Internal Medicine Interventional Cardiology; Emergency Provider Emergency Medicine; Visit Provider Internal Medicine Cardiovascular Disease
PROC: 4A023N7 Measurement of Cardiac Sampling and Pressure, Left Heart, Percutaneous Approach (ICD-10-PCS; CPT 93452; principal; 2021-07-09 06:25)
DX: I21.19 ST elevation (STEMI) myocardial infarction involving other coronary artery of inferior wall (principal); I10 Essential (primary) hypertension; Z23 Encounter for immunization; I25.10 Atherosclerotic heart disease of native coronary artery without angina pectoris; E78.5 Hyperlipidemia, unspecified; F17.210 Nicotine dependence, cigarettes, uncomplicated; E11.9 Type 2 diabetes mellitus without complications; Z79.4 Long term (current) use of insulin; Z79.84 Long term (current) use of oral hypoglycemic drugs; Z95.5 Presence of coronary angioplasty implant and graft; Z90.49 Acquired absence of other specified parts of digestive tract; Z79.82 Long term (current) use of aspirin
CPT/HCPCS: 36415; 71045; 80048; 80053; 80061; 82948; 83036; 83735; 84484; 85025; 85610; 85730; 86850; 86900; 86901; 90471; 90653; 93005; 93306; 93458; 96374; 96375; 99285; A9270; C1725; C1769; C1874; C1887; C1894; C9606; G0008; J0461; J0583; J1644; J1815; J2250; J2270; J2405; J3010; J3475; J7030; J7040

== ENCOUNTER 2021-07-30 00:23 | Day surgery (SDC) | payer OTHER, SELFPAY ==
[2021-07-29 15:20] VITALS: BMI 28.8
[2021-07-30] VITALS (11 sets, daily range): BP systolic 119–148; BP diastolic 70–93; PULSE 76–84; RESP 12–20; TEMP 36.1; O2SAT 98–100
[2021-07-30 08:46] LABS: Anion Gap 12 mmol/L (8-16); Blood Urea Nitrogen 16 mg/dL (9-20); Calcium 9.7 mg/dL (8.4-10.2); Carbon Dioxide 22 mmol/L (22-30); Chloride 105 mmol/L (98-107); Estimated CRCL calculation 152 ml/min; Estimated Glomerular Filt Rate > 60; Glucose 244 mg/dL (65-110); Potassium 4.5 mmol/L (3.4-5.0); Sodium 139 mmol/L (137-145)
[2021-07-30 09:02] LABS: Basophils Absolute Auto 0.1 K/mm3 (0.0-0.1); Eosinophils Absolute Auto 0.4 K/mm3 (0-0.3); Eosinophils Percent Auto 4.8 % (0-4.4); Hematocrit 45.3 % (42.0-52.0); Hemoglobin 16.3 g/dL (14.0-18.0); Immature Granulocyte Absolute 0.03 K/mm3 (0.00-0.031); Immature Granulocyte Percent A 0.4 % (0-0.5); Lymphocytes Absolute Auto 2.49 K/mm3 (0.9-3.2); Lymphocytes Percent Auto 30.9 % (18.3-44.2); Mean Corpuscular Hemoglobin 32.3 pg (26-34); Mean Corpuscular Volume 89.9 fl (80-100); Mean Platelet Volume 9.8 fl (7.4-10.4); Monocytes Absolute Auto 0.5 K/mm3 (0.1-0.6); Monocytes Percent Auto 5.7 % (2.6-8.5); Neutrophils Absolute Auto 4.6 K/mm3 (1.3-6.7); Neutrophils Percent Auto 57.2 % (45.5-73.1); Platelet Count Result 314 k/mm3 (150-375); Red Blood Count 5.04 M/mm3 (4.6-6.20); Red Cell Distribution Width 11.9 % (11.5-14.5); White Blood Count 8.1 K/mm3 (4.5-10.0)
--- NOTE | 2021-07-30 10:40 | WPDHPUPDATE1 ---
History and Physical Update Update Date/Time: 07/30/21 10:40 History and Physical has been reviewed, including an updated exam of the patient. There are NO changes in the patient's condition. Risks, benefits, and alternatives have been discussed and questions answered. Patient agrees to proceed with procedure.
--- NOTE | 2021-07-30 10:40 | WPDMODSED ---
Moderate Sedation Note-Pt Data Patient Data Allergies Allergy/AdvReac Type Severity Reaction Status Date / Time No Known Allergies Allergy Verified 07/29/21 15:32 Home Medications Medication Instructions Recorded Confirmed Type cholecalciferol (vitamin D3) 125 125 mcg PO DAILY 04/03/20 07/29/21 History mcg (5,000 unit) tablet fenofibrate 160 mg tablet 160 mg PO DAILY 04/03/20 07/29/21 History gabapentin 800 mg tablet 800 mg PO DAILY 04/03/20 07/29/21 History lisinopril 2.5 mg tablet 2.5 mg PO DAILY 04/03/20 07/29/21 History metformin 500 mg tablet 1,000 mg PO BID 04/03/20 07/29/21 History metoprolol tartrate 25 mg tablet 25 mg PO BID tablet 04/03/20 07/29/21 History omega-3 fatty acids 1,000 mg 1,000 mg PO DAILY 04/03/20 07/29/21 History capsule Jardiance 10 mg PO DAILY 07/09/21 07/29/21 History Trulicity 3 mg SUBCUT WEEKLY 07/09/21 07/29/21 History lubiprostone [Amitiza] 8 mcg PO BID 07/09/21 07/29/21 History aspirin 81 mg PO QAM #30 tablet 07/11/21 07/29/21 Rx atorvastatin 80 mg PO DAILY #30 tablet 07/11/21 07/29/21 Rx nitroglycerin [Nitrostat] 0.4 mg SUBLINGUAL Q5MIN PRN #20 07/11/21 07/29/21 Rx tablet ticagrelor [Brilinta] 90 mg PO Q12HR #60 tablet 07/11/21 07/29/21 Rx Current Medications: Active Medications Sodium Chloride (Normal Saline Iv) 500 mls @ 100 mls/hr IV CONT .Q5H SCOTT Sedation/Anesthesia: No previous sedation/anesthesia problems (including family history). [facility] Past Medical History Medical History Diabetes Hypertension Myocardial infarction Surgical History Surgical History H/O heart artery stent Hx of appendectomy Family History Family History Father Diabetes mellitus Cerebrovascular accident Mother Family history of rheumatoid arthritis Other Family history of alcoholism Family history of obesity Social History Social History Smoking packs per day: 1 Smoking cigarettes per day: 20.0 Years smoked: 20 Smoking pack-years: 20.00 Smoking status: Current every day smoker Tobacco type: cigarettes Alcohol intake: current Drinks per week: 1 Substance use: never Substance use type: does not use Living arrangements: with family Spiritual care concerns: No Mod Sed Physical Exam Physical Exam Pre Procedural Exam: Normal: Appearance, Eyes, Ears, Nose, Neck, Throat, Airway, Lungs, Heart Size, Heart Rate, Heart Rhythm, Neuro Exam, Abdomen, Liver, Kidneys, Spleen, Breasts, Genitalia, Extremities and Skin Hours since solid foods: 8 Hours since liquid intake: 8 Mallampati Classification: class 1 Internal Medicine - PN: Obj Da Vital Signs Vital Signs: Vital Signs - 24 hr 07/30/21 08:25 Temperature 36.1 C L Pulse Rate 84 Respiratory Rate 12 Blood Pressure 148/79 H Pulse Oximetry 100 Meds/Results Medications: Active Medications Generic Name Dose Route Start Last Admin Trade Name Freq PRN Reason Stop Dose Admin Sodium Chloride 500 mls @ 100 mls/hr 07/30/21 07:30 Normal Saline Iv IV CONT .Q5H SCOTT Labs CBC & Chem 7: 07/30/21 08:24 07/30/21 08:24 Labs: Laboratory Results - last 24 hr 07/30/21 07/30/21 08:24 08:24 WBC 8.1 RBC 5.04 Hgb 16.3 Hct 45.3 MCV 89.9 MCH 32.3 MCHC 36.0 RDW 11.9 Plt Count 314 MPV 9.8 Immature Gran % (Auto) 0.4 Neut % (Auto) 57.2 Lymph % (Auto) 30.9 [place] % (Auto) 5.7 Eos % (Auto) 4.8 H Baso % (Auto) 1.0 Lymph # (Auto) 2.49 [place] # (Auto) 0.5 Eos # (Auto) 0.4 H Baso # (Auto) 0.1 Abs Immat Gran (auto) 0.03 Absolute Neuts (auto) 4.6 Absolute Nucleated RBC 0.0 Nucleated RBC % 0.0 Sodium 139 Potassium 4.5 Chloride 105 Carbon Dioxide 22 Anion Gap 12 BUN 16 Creatinine 0.60 L Estim
--- NOTE | 2021-07-30 10:41 | ECG_ITS ---
Measurements Intervals [place] Rate: 74 P: 25 KS: 171 QRS: -89 QRSD: 103 T: 180 QT: 351 QTc: 391 Interpretive Statements SINUS RHYTHM LEFT AXIS DEVIATION INCOMPLETE RIGHT BUNDLE BRANCH BLOCK INFERIOR INFARCT, AGE INDETERMINATE BORDERLINE ST-T WAVE ABNORMALITY- HIGH LATERAL LEADS ABNORMAL ECG Electronically Signed On 07-30-2021 16:46:14 CDT by Simon Mojica D.O.
--- NOTE | 2021-07-30 10:46 | WPDCARDPROC ---
Cardiac Cath Procedure Note Date of procedure:: 07/30/21 Performing physician:: Camilo Ybarra MD date of service July 30, 2000 Indication:: staged intervention right artery Brief clinical history:: this is a 45-year-old patient with past history of diabetes, hypertension, hyperlipidemia who presented couple weeks ago with ST-elevation myocardial infarction. At that time was found to have occlusion in the mid circumflex artery. Underwent balloon angioplasty and stent deployment. At that time was noticed to have high-grade stenosis proximal RCA, at the junction of the mid to distal RCA and then distal RCA. Was brought in today for staged intervention . Procedure Procedure performed:: 1-Moderate sedation that started at 9:35 a.m.and ended at 10:35 a.m. with total duration 60 minutes using 2mg of Versed and 75mcg fentanyl. The registered nurse was kar vicente. 2-Selective left and right coronary angiogram. 3-Left heart catheterization with measurement of LVEDP and measurement of gradient across aortic valve. 4- intravascular ultrasound of the right coronary artery. 5- deployment of a drug-eluting stent 3.25 x 15 Xience at the junction of the mid to distal RCA. 6- deployment of a drug-eluting stent Xience 3.25 x 12 overlapping the proximal stent and proximal to it in overlapping fashion. 4-Right common femoral arterial angiogram. 5-Deployment of 6 Armenian Angio-Seal. Sedation/Medication given:: Moderate sedation. Access site:: Right common femoral artery. Estimated blood loss:: 10cc Procedure note:: After informed consent patient was brought in to laboratory director with the was draped and prepped in usual manner. Moderate sedation was given and the right groin was infiltrated using 1% lidocaine. 6 Armenian sheath was obtained using micropuncture needle and the modified Seldinger technique. Selective right coronary angiogram was done using JR4 catheter with the tip of the catheter placed to the right coronary artery. Selective right coronary angiogram was done using JR4 guide catheter with side holes with the tip of the catheter placed to the right coronary artery. after that coronary luge wire was advanced to distal RCA. Balloon angioplasty of the mid RCA done using 3 by 12 balloon with inflation done under nominal pressure for 25 seconds. Then we used the same balloon for balloon angioplasty of the proximal segment of the RCA under normal pressure for 25 seconds. After that into the vascular ultrasound was done using [employer] galena and measurements done. subsequently deployment of a drug-eluting stent Xience 3.25 x 15 at the junction of the mid to distal segment under nominal pressure for 25 seconds. Then we deployed another stent Xience 3.25 x 12 proximal to the proximal right coronary artery stent in overlapping fashion and deployment done under nominal pressure for 25 seconds. The stent balloon was used to inflate the overlap segment under 16 atmospheres for 25 seconds. Two inflations. Selective left coronary angiogram was done using JL4 catheter with the tip of the catheter placed in the left main coronary artery. After that 5 Armenian pigtail catheter was advanced across the aortic valve into the left ventricle with measurement of LVEDP and measurement of gradient across aortic valve. Right common femoral arterial angiogram was done. Findings:: 1- left coronary artery is a large artery that divides into large LAD, large circumflex artery. Left main is free of disease. 2- left anterior descending artery is a large artery that runs and wraps around the apex. Has diffuse minimal irregularities and at the junction of the mid to distal segment there is 30%. At the further downstream of the LAD that wraps around the apex and with the artery is very small there is about 80%. 3- leftcircumflex artery is a large artery Has patent stents in the mid segment with minimal InStent restenosis the proximal stent. Medium size OM1 branch proximally with mi
--- NOTE | 2021-07-30 11:45 | SUR.PHASEII ---
Pt up at 30degrees eating lunch tray
--- NOTE | 2021-07-30 14:40 | SUR.PHASEII ---
Pt resting well. Tegaderm drsg intact with no signs of bleeding or hematoma. Ambulated to the bathroom with steady gait. voiding without difficulty. significant other at bedside.
--- NOTE | 2021-07-30 16:04 | SUR.PHASEII ---
IV removed from left hand with catheter intact. No redness or swelling at the site. Right groin sheath site with gauze and tegaderm intact without redness or drng present. No signs of hematoma noted. Discharge instructions reviewed with patient and significant other. Discharged to personal vehicle via wheelchair with significant other driving.
--- NOTE | 2021-07-30 16:09 | SUR.PHASEII ---
1500 - voiding without difficulty. Ambulating to bathroom with slow steady gait.
== END 2021-07-30 15:50 | disposition home or self-care (01) ==
PROVIDERS: Visit Provider Internal Medicine Cardiovascular Disease
PROC: 4A023N7 Measurement of Cardiac Sampling and Pressure, Left Heart, Percutaneous Approach (ICD-10-PCS; CPT 93452; principal; 2021-07-30 09:00)
DX: I25.10 Atherosclerotic heart disease of native coronary artery without angina pectoris (principal); I25.2 Old myocardial infarction; Z95.5 Presence of coronary angioplasty implant and graft; I10 Essential (primary) hypertension; E11.9 Type 2 diabetes mellitus without complications; E78.5 Hyperlipidemia, unspecified; F17.210 Nicotine dependence, cigarettes, uncomplicated; Z79.84 Long term (current) use of oral hypoglycemic drugs; Z79.82 Long term (current) use of aspirin; Z79.01 Long term (current) use of anticoagulants; Z79.899 Other long term (current) drug therapy
CPT/HCPCS: 36415; 80048; 85025; 92978; 93458; A9270; C1725; C1753; C1760; C1769; C1874; C1887; C1894; C9600; G0269; J0583; J1644; J2250; J3010; J7030; J7040

== ENCOUNTER 2022-06-22 14:25 | Outpatient (CLI) | payer OTHER, SELFPAY ==
--- NOTE | ~2022-06-22 | XR_ITS ---
XR chest 2V 06/22/2022 14:43 Indication: Shortness of breath Procedure: 2 view chest Comparison: 07/09/2021 Findings: Status post median sternotomy for CABG. Heart size normal. There is subsegmental atelectasi s of the lung bases. No focal pneumonia, edema, pleural effusion or pneumothorax. There is a right th oracotomy defect. Impression: 1: Subsegmental atelectasis of the lung bases. Reviewed, dictated and finalized at location [facility]. Impression: 1: Subsegmental atelectasis of the lung bases.
== END 2022-06-22 14:26 | disposition home or self-care (01) ==
LOC: ANHIMG 14:32
PROVIDERS: Visit Provider Internal Medicine Cardiovascular Disease
DX: R06.02 Shortness of breath (principal); J98.11 Atelectasis
CPT/HCPCS: 71046

== ENCOUNTER 2022-08-06 15:59 | Emergency (ER) | payer OTHER, SELFPAY ==
--- NOTE | ~2022-08-06 | CT_ITS ---
EXAMINATION: CT brain wo con DATE: 08/06/2022 19:27 INDICATION: Facial paresthesias for one week TECHNIQUE: Computed tomography (CT) of the head was performed without intravenous contrast. The mA wa s adjusted according to patient size. Iterative reconstruction technique was employed. Exam dose: 68 1.00 mGy-cm total exam DLP. COMPARISON: None FINDINGS: No intracranial mass lesion or hemorrhage or cerebrovascular accident. No midline shift or mass effect. Normal ventricular size. No subdural or epidural hematoma. No orbital mass lesion. Mastoid air cells and paranasal sinuses are unremarkable except for patchy opacification of ethmoid a ir cells bilaterally. No fracture or bone destruction of the cranial vault. IMPRESSION: No significant intracranial abnormality Reviewed, dictated and finalized at [facility]. Reviewed, dictated and finalized at location [facility].
[2022-08-06 16:08] VITALS: BP 138/72; PULSE 92; RESP 16; TEMP 36.7; O2SAT 100
[2022-08-06 18:51] LABS: Basophils Absolute Auto 0.1 K/mm3 (0.0-0.1); Basophils Percent Auto 0.9 % (0.2-1.2); Eosinophils Absolute Auto 0.6 K/mm3 (0-0.3); Eosinophils Percent Auto 7.4 % (0-4.4); Hematocrit 43.4 % (42.0-52.0); Hemoglobin 14.7 g/dL (14.0-18.0); Immature Granulocyte Absolute 0.03 K/mm3 (0.00-0.031); Immature Granulocyte Percent A 0.3 % (0-0.5); Lymphocytes Absolute Auto 3.03 K/mm3 (0.9-3.2); Lymphocytes Percent Auto 35.2 % (18.3-44.2); Mean Corpuscular HGB Conc 33.9 g/dl (32-36); Mean Corpuscular Hemoglobin 30.4 pg (26-34); Mean Corpuscular Volume 89.7 fl (80-100); Mean Platelet Volume 9.5 fl (7.4-10.4); Monocytes Absolute Auto 0.5 K/mm3 (0.1-0.6); Monocytes Percent Auto 5.6 % (2.6-8.5); Neutrophils Absolute Auto 4.4 K/mm3 (1.3-6.7); Neutrophils Percent Auto 50.6 % (45.5-73.1); Platelet Count Result 365 k/mm3 (150-375); Red Blood Count 4.84 M/mm3 (4.6-6.20); Red Cell Distribution Width 13.2 % (11.5-14.5); White Blood Count 8.6 K/mm3 (4.5-10.0)
[2022-08-06 19:05] LABS: Alanine Aminotransferase 25 U/L (6-50); Albumin Level 5.2 g/dL (3.5-5.1); Alkaline Phosphatase 83 U/L (38-126); Anion Gap 14 mmol/L (8-16); Aspartate Amino Transferase 28 U/L (17-59); Bilirubin,Total 0.8 mg/dL (0.2-1.3); Blood Urea Nitrogen 15 mg/dL (9-20); Calcium 9.4 mg/dL (8.4-10.2); Carbon Dioxide 21 mmol/L (22-30); Chloride 105 mmol/L (98-107); Estimated CRCL calculation 151 ml/min; Estimated Glomerular Filt Rate > 60; Glucose 140 mg/dL (65-110); Potassium 4.1 mmol/L (3.4-5.0); Sodium 140 mmol/L (137-145)
[2022-08-06 19:08] VITALS: PULSE 79; RESP 19; O2SAT 100
[2022-08-06 19:15] VITALS: PULSE 81; RESP 20; O2SAT 100
[2022-08-06 19:17] LABS: Troponin I < 0.012 ng/mL (0.000-0.034)
--- NOTE | 2022-08-06 19:20 | PC.NURSE ---
Patient report given to ADAIR Blanca. All questions answered and care of patient transferred.
--- NOTE | 2022-08-06 19:27 | ED.GENADULT ---
HPI - General Adult General Chief complaint: Unspecified Stated complaint: face numbness x 1 week Time Seen by Provider: 08/06/22 18:41 History of Present Illness HPI narrative: This is a 46-year-old male with multiple episodes of coronary artery disease, with last cath and stenting done approximately 2 months ago, who presents to the emergency department with right-sided facial paresthesias. He states he initially had left-sided facial paresthesias associated with rough skin approximately 1 month after his catheterization. He states he noted similar skin tightness, followed by rough skin over the right eyelid and cheek that spontaneously improved but is now associated with tingling and burning sensation. He states he has had checkbox in the past. He was evaluated at outside facilities with suspected shingles. He denies change in vision, eye pain, weakness/numbness, vomiting or other complaints at this time. Related Data Home Medications Medication Instructions Recorded Confirmed fenofibrate 160 mg tablet 160 mg PO DAILY 04/03/20 06/16/22 gabapentin 800 mg tablet 800 mg PO DAILY 04/03/20 06/16/22 lisinopril 2.5 mg tablet 2.5 mg PO DAILY 04/03/20 06/16/22 metformin 500 mg tablet 1,000 mg PO BID 04/03/20 06/16/22 metoprolol tartrate 25 mg tablet 25 mg PO BID 04/03/20 06/16/22 omega-3 fatty acids 1,000 mg 1,000 mg PO DAILY 04/03/20 06/16/22 capsule (Fish Oil Concentrate) dulaglutide 1.5 mg/0.5 mL 3 mg subcut WEEKLY 07/09/21 06/16/22 subcutaneous pen injector (Trulicity) empagliflozin 10 mg tablet 10 mg PO DAILY 07/09/21 06/16/22 (Jardiance) bupropion HCl 150 mg 24 hr tablet, 150 mg PO QAM 06/16/22 06/16/22 extended release cholecalciferol (vitamin D3) 125 See Rx Instructions PO DAILY 06/16/22 06/16/22 mcg (5,000 unit) tablet Allergies Allergy/AdvReac Type Severity Reaction Status Date / Time No Known Allergies Allergy Verified 06/16/22 11:27 Review of Systems Review of Systems: CONSTITUTIONAL: Denies fever, chills, or sweats. EYES: Denies visual changes, redness, or discharge. ENT: Denies rhinorrhea, congestion, sore throat, or otalgia. CARDIOVASCULAR: Denies chest pain, palpitations, or edema. RESPIRATORY: Denies cough or dyspnea. GASTROINTESTINAL: Denies abdominal pain, nausea, vomiting, or diarrhea. GENITOURINARY: Denies dysuria or hematuria. SKIN: Denies rash or itching. MUSCULOSKELETAL: Denies back pain, joint pain, or myalgia. NEUROLOGIC: Tingling and burning of the right face denies headache, numbness, dizziness, or weakness. PSYCHIATRIC: Denies anxiety or depression. [facility] Past Medical History Medical History Diabetes Hypertension Myocardial infarction Surgical History Surgical History H/O heart artery stent Hx of appendectomy Family History Family History Father Diabetes mellitus Cerebrovascular accident Mother Family history of rheumatoid arthritis Other Family history of alcoholism Family history of obesity Social History Social History Smoking packs per day: 1 Smoking cigarettes per day: 20.0 Years smoked: 20 Smoking pack-years: 20.00 Smoking status: Current every day smoker Tobacco type: cigarettes Alcohol intake: current Drinks per week: 1 Substance use: never Substance use type: does not use Spiritual care concerns: No Exam Narrative: GENERAL: Well-developed, well-nourished, and in no acute distress. HEAD: Normocephalic, atraumatic. EYES: PERRLA and EOMI. ENT: Nares clear, no rhinorrhea or epistaxis. Mucous membranes moist. Oropharynx without tonsillar hypertrophy exudate or other lesions. Bilateral TMs pearly alberto nonbulging, no lesions noted in the external auditory canal NECK: Supple. No adenopathy or masses
[2022-08-06 19:30] LABS: INR 1.1; Prothrombin Time 13.3 Seconds (11.1-14.7)
[2022-08-06 20:21] VITALS: BP 120/57; PULSE 80; RESP 19; O2SAT 100
== END 2022-08-06 20:21 | disposition home or self-care (01) ==
PROVIDERS: Emergency Provider Preventive Medicine Aerospace Medicine
DX: R20.2 Paresthesia of skin (principal); I25.10 Atherosclerotic heart disease of native coronary artery without angina pectoris; E11.9 Type 2 diabetes mellitus without complications; I10 Essential (primary) hypertension; I25.2 Old myocardial infarction; Z95.5 Presence of coronary angioplasty implant and graft; Z79.84 Long term (current) use of oral hypoglycemic drugs; F17.210 Nicotine dependence, cigarettes, uncomplicated
CPT/HCPCS: 36415; 70450; 80053; 84484; 85025; 85610; 85730; 99284

== ENCOUNTER 2022-10-25 13:01 | Outpatient (CLI) | payer OTHER, SELFPAY ==
--- NOTE | ~2022-10-25 | MR_ITS ---
EXAMINATION: MR brain/brain stem wo con DATE: 10/25/2022 13:52 INDICATION: Right facial numbness. TECHNIQUE: Magnetic resonance imaging (MRI) of the brain and brainstem was performed without intraven ous contrast. COMPARISON: Head CT 08/06/2022 FINDINGS: There are approximately 7 foci of nonspecific increased T2-weighted signal intensity in the cerebral white matter. There is no intracranial hemorrhage, acute infarction, or abnormal intracrani al mass lesion. The ventricles are normal in size. There is mild mucosal thickening in the paranasal sinuses. The orbits are normal. The mastoid air cells are normal. IMPRESSION: 1. Mild nonspecific cerebral white matter disease. The differential diagnosis includes premature marine diesel technician servando small vessel ischemic disease (especially if the patient has cardiovascular risk factors), demyel inating disease such as multiple sclerosis, drug abuse, vasculitis, or reactive astrocytosis (gliosis ) secondary to nonspecific etiology. Reviewed, dictated and finalized at location A. ESENTATIVE IMPRESSION: 1. Mild nonspecific cerebral white matter disease. The differential diagnosis i ncludes premature chronic small vessel ischemic disease (especially if the simone ent has cardiovascular risk factors), demyelinating disease such as multiple sc lerosis, drug abuse, vasculitis, or reactive astrocytosis (gliosis) secondary t o nonspecific etiology.
== END 2022-10-25 13:02 | disposition home or self-care (01) ==
DX: R20.0 Anesthesia of skin (principal); R93.0 Abnormal findings on diagnostic imaging of skull and head, not elsewhere classified
CPT/HCPCS: 70551

== ENCOUNTER 2025-02-04 13:47 | Outpatient (CLI) | payer OTHER, SELFPAY ==
--- NOTE | 2025-02-04 13:54 | ECHO_ITS ---
Patient Info Name: Enzo Pham Age: 49 years : 1975 Gender: Male Ht: 72 in Wt: 211 lbs BSA: 2.22 m2 HR: 94 bpm BP: 138 / 83 mmHg Heart Rhythm: Sinus Rhythm Technical Quality: Good Exam Date: 02/04/2025 2:06 PM Exam Location: Echo Lab Patient Status: Outpatient Admit Date: 02/04/2025 Staff Ordering Physician: Simon Mojica DO Health And Nutrition Specialist: Colleen De La O RDCS Attending Provider: Simon Mojica DO Referring Physician: Yunior AVALOS; Exam Type: CA echo doppler color flow Study Info Indications R06.09 - Other forms of dyspnea Complete two-dimensional, color flow and Doppler transthoracic echocardiogram is performed. Summary 1. Complete two-dimensional, color flow and Doppler transthoracic echocardiogram is performed. 2. Left ventricular chamber dimension is normal. 3. Left ventricular systolic function is normal, estimated at 60-65%. 4. There is mild concentric increased left ventricular wall thickness. 5. Left atrial chamber dimension is mildly enlarged. 6. There is trace mitral valve regurgitation. 7. No pulmonary hypertension, estimated pulmonary arterial systolic pressure is 22 mmHg. Left Ventricle Tissue doppler was not done. Left ventricular chamber dimension is normal. Left ventricular systolic function is normal, estimated at 60-65%. There is mild concentric increased left ventricular wall thickness. Right Ventricle Right ventricular chamber dimension is normal. Right ventricular systolic function is normal. Left Atria Left atrial chamber dimension is mildly enlarged. Right Atria Right atrial chamber dimension is normal. Aortic Valve The aortic valve is trileaflet. There is no aortic valve stenosis. There is no aortic valve regurgitation. Pulmonic Valve There is no pulmonic regurgitation. Mitral Valve There is no mitral valve stenosis. There is trace mitral valve regurgitation. Tricuspid Valve There is no tricuspid valve regurgitation. No pulmonary hypertension, estimated pulmonary arterial systolic pressure is 22 mmHg. Pericardium/Pleural There is no pericardial effusion. Inferior Vena Cava Normal inferior vena cava with >50% collapse upon inspiration consistent with normal right atrial pressure, 5 mmHg. Aorta The aortic root size at the sinus of Valsalva is normal. Left Ventricular Outflow Tract Name Value Normal LVOT 2D LVOT Diameter 2.0 cm LVOT Doppler LVOT Peak Gradient 7 mmHg LVOT Mean Gradient 3 mmHg LVOT VTI 20 cm LVOT VTI/AV VTI Ratio 0.8 LVOT Stroke Volume 62 ml LVOT CO 4.9 l/min LVOT CI 2.2 l/min/m2 Pulmonic Valve Name Value Normal RVOT Doppler RVOT Peak Gradient 4 mmHg PV Doppler PV Peak Gradient 8 mmHg Mitral Valve Name Value Normal MV Doppler MV Decel Banner 409 cm/s2 MV PHT 48 ms MV Area (PHT) 4.6 cm2 4.0-5.0 MV Diastolic Function MV E Peak Velocity 68 cm/s MV A Peak Velocity 49 cm/s MV E/A 1.4 MV Decel Time 167 ms Tricuspid Valve Name Value Normal TV Regurgitation Doppler TR Peak Velocity 207 cm/s TR Peak Gradient 17 mmHg Estimated PAP/RSVP RA Pressure 5 mmHg <=5 PA Systolic Pressure 22 mmHg <36 RV Systolic Pressure 22 mmHg <36 Aortic Valve Name Value Normal AV Doppler AV Peak Velocity 152 cm/s AV Peak Gradient 9 mmHg AV Mean Gradient 5 mmHg AV VTI 25 cm AV Area (Cont Eq VTI) 2.5 cm2 >=3.0 AV Area (Cont Eq Walker) 2.7 cm2 AV Regurgitation 2D LVOT Area 3.1 cm2 Ventricles Name Value Normal LV Dimensions 2D/MM IVS Diastolic Thickness (2D) 1.6 cm 0.6-1.0 LVID Diastole (2D) 4.6 cm 4.2-5.8 LVIW Diastolic Thickness (2D) 0.9 cm 0.6-1.0 LVID Systole (2D) 3.2 cm 2.5-4.0 LVOT Diameter 2.0 cm LV Mass (2D Cubed) 223.37 g 88.00-224.00 LV Mass Index (2D Cubed) 100 g/m2 49-115 Relative Wall Thickness (2D) 0.41 LV Fractional Shortening/Ejection Fraction 2D/MM LV Fractional Shortening (2D) 32 % 25-43 LV EF (2D Teicholz) 60 % 52-72 LV Diastolic Volume (4C MOD) 68 ml LV EF (4C MOD) 61 % LV Diastolic Volume (2C MOD) 80 ml LV EF (2C MOD) 71 % LV Diastolic Volume (BP MOD) 74 ml 62-150 LV Diastolic Volume Index (BP MOD) 33 ml/m2 34-74 LV Systolic Volume (BP MOD) 25 ml 21-61 LV Systolic Volume Index (BP MOD) 11 ml/m2 11-31 LV EF (BP MOD) 66 % 52-72 LV Diastolic Length (4C) 8.5 cm LV Systolic Length (4C) 7.0 cm LV Stroke Volume (4C MOD) 42 ml Atria Name Value Normal LA Dimensions LA Volume (4C A-L) 49 ml LA Volume (BP A-L) 49 ml RA Dimensions RA Area (4C) 17.6 cm2 <=18.0 Report Signatures
--- OUTSIDE RECORDS SUMMARY | 2025-02-04 14:25 | XMS_ITS | Data Portability ---
Author Organization [facility], [address] [facility] ([place]) Address [address] 4th [place] [address] Care Team Providers Care Shake Loader Name Role Phone JOMAR DE OLIVEIRA Primary Care Provider ANN MENDOZA Referring Provider Assessment Encounter Date Assessment Date Assessment LastModified by Organization Details LastModified Time 07/25/2024 07/25/2024 The area on his R buttocks seems to improved in comparison to last Tuesday - the area is less firm/smaller in size and there is less erythema surrounding the area but unfortunately not resolved. Continue an abx to ensure resolution. Will continue to check in with him via phone and office f/u only if not improving. Patient reports agreement and understanding with this plan. [email or web address] Not available 07/25/2024 12:11:30 12/05/2024 12/05/2024 - Noted that the patient's most recent A1c is 12.6%. This may likely be what is contributing to recurrent infection and poor healing. Will defer management of this to PCP. The patient reports adherence to all of his prescribed medication -He does not have any predisposing physical factor to recurrent skin abscesses. Will treat each infection as it arises. He is to continue using on fragranced soap as he is using and he can use on fragranced creams such as Cetaphil or CeraVe for moisturizing afterwards if needed. We can attempt using Hibiclens 4% solution to decolonize for MRSA, though this is very rarely effective. Most recent wound cultures did grow methicillin-resis tant Staphylococcus lugdunensis -Patient is aware that he can use dry hot compresses as an aid to help with resolution of skin abscesses but they do occur -He will reach out to ID should he develop signs or symptoms of another abscess Return to clinic as needed The plan of care was communicated to the patient. They had an opportunity to participate in decision making and to ask questions. I personally spent a total of 50 minutes on the patient on this date of service including both yjjq-[id number] and non [id number]-wc-[id number] time. 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 Follow up in 6 months or sooner if needed. Lipids, A1c and CMP drawn today Pt verbalizes understanding of treatment plan. [email or web address] Not available 12/18/2024 11:30:28 Plan of Treatment Reminders Order Date Submit Date Provider Last Modified By Organization Details Last Modified Time Details Appointments None recorded. Lab culture, aerobic - right lower abdomen 2024 025 [email or web address] [facility], [address] [place] [address], [address], 5 09:25:58 Referral endocrinolo gy referral 2024 025 [email or web address] Not available 14:34:53 cardiologis t referral 2024 025 [email or web address], [address], [place], [address], 10:07:03 Procedures electrocard iogram, routine ECG, 12 leads min; interpretat ion and report (PROC) 2024 025 [email or web address] Not available 08:52:23 Surgeries None recorded. Imaging None recorded. Medication Orders gabapentin 800 mg tablet 2024 025 [facility]acy #[id number], [address], [place], [address], 5 10:09:01 Jardiance 10 mg tablet 2024 025 [facility]/Pharmacy #6930, [address] [place], [address], 5 10:09:02 metformin 500 mg tablet 2024 025 [facility] [address] [place], [address], 10:09:01 Trulicity 4.5 mg/0.5 mL subcutaneou s pen injector 2024 025 [facility]/Pharmacy #6930, [address] [place], [address], 5 10:09:00 lisinopril 2.5 mg tablet 2024 025 [facility] [address] [place], [address], 5 10:08:59 metoprolol tartrate 25 mg tablet 2024 025 [facility]/Pharmacy #6930, [address] [place], [address], 5 10:09:02 atorvastati n 80 mg tablet 2024 025 [facility]/Pharmacy #6930, [address] [place], [address], 5 10:09:02 fenofibrate 160 mg tablet 2024 025 [facility]armacy #6930, [address] [place], [address], 5 10:09:01 Bactrim DS 800 mg-160 mg tablet 2024 025 [facility]/Pharmacy #6930, [address] [place], [address], 5 15:03:54 clindamycin HCl 300 mg capsule 2023 025 [facility]/Pharmacy #4830, [address], [place], [address], 14:40:15 Patient TargetsNo targets recorded. Patient Instructions Encounter Date Encounter Id Patient Instructions Last Modified By Organization Details Last Modified Time 10/31/2024 [id number] Patient reports agreement and understanding with the above plan. [email or web address] Not available 10/31/2024 16:42:22 11/01/2024 [id number] Patient reports agreement and understanding with this plan. [email or web address] Not available 11/02/2024 10:04:12 Reason for Referral Endocrinology Referral for T ype 2 diabetes mellitus Referring Physician: Margaret Simons, Family Medicine, Encounter Date: 12/18/2024 Cad Drafter Referral for Co ronary arteriosclerosis Referring Physician: Margaret Simons [facility], Encounter Date: 12/18/2024 Results Created Date Observation Date Name Description Value Unit Range Abnormal Flag Note LastModifiedBy Organization Detail LastModifiedTime 11/01/1911/05/2024 C WOUND wound culture (swab) with gram stain (ne abnormal Print Date/ Time: 025 07:57 PARK RANGER Patie nt: MICHELLE PHAM Micro biolo gy - Wound s and Tissu es Legen d: c=Cor recte d, F=Res ult Comme nt, S=Alexa cepti ble, I=Int ermed iate, R=Res istan t, N/A=N ot Appli cable PROCE DURE: Wound Cultu re (swab ) ACCES JOSE: [phone] with Gram Stain [] SOURC E: Absce ss BODY SITE: COLLE CTED DATE/ TIME: 2024 14:33 PARK RANGER RECEI LISE DATE/ TIME: 2024 19:16 PARK RANGER START DATE/ TIME: 2024 19:16 PARK RANGER FREE TEXT SOURC E: R lower abdom en swab FI NAL REPOR TS Final Repor t [] Verif ied Date/ Time: 2/3/2 025 07:57 PARK RANGER Few Staph yloco ccus lugdu nensi s UT ELIMI NARY REPOR TS Preli minar y Repor t [] Verif ied Date/ Time: 025 09:10 PARK RANGER Few Staph yloco ccus speci es Ident ifica tion to follo w Cultu re reinc ubate d Preli minar y Repor t [] Verif ied Date/ Time: 025 13:59 PARK RANGER Light growt h-cul ture reinc ubate d. ST AINS/ PREPA RATIO NS GS [] Verif ied Date/ Time: 2024 21:49 PARK RANGER Rare (<1/h pf) neutr ophil s Few (1-5/ hpf) Gram Posit daria Cocci in pairs JONES SCEPT IBILI TY RESUL TS Staph yloco ccus lugdu nensi s Antib iotic MINT Clind amyci n Susce ptibl e Dapto mycin Susce ptibl e Eryth romyc in Susce ptibl e Genta micin Susce ptibl e Linez olid Susce ptibl e Oxaci llin Resis tant Tetra cycli ne Susce ptibl e Vanco mycin Susce ptibl e Not Available [facility] Only - [facility] [address] [place] [address], [id number], 11/05/2024 08:57:20 11/01/19 25 11/05/2024 C WOUND wound culture (swab) with gram stain (ne abnormal Print Date/ Time: 07:56 PARK RANGER Patie nt: MICHELLE PHAM Micro biolo gy - Wound s and Tissu es Legen d: c=Cor recte d, F=Res ult Comme nt, S=Alexa cepti ble, I=Int ermed iate, R=Res istan t, N/A=N ot Appli cable PROCE DURE: Wound Cultu re (swab ) ACCES JOSE: [phone] with Gram Stain [] SOURC E: Absce ss BODY SITE: COLLE CTED DATE/ TIME: 2024 14:33 PARK RANGER RECEI LISE DATE/ TIME: 2024 19:16 PARK RANGER START DATE/ TIME: 2024 19:16 PARK RANGER FREE TEXT SOURC E: R lower abdom en swab UT ELIMI NARY REPOR TS Preli minar y Repor t [] Verif ied Date/ Time: 025 09:10 PARK RANGER Few Staph yloco ccus speci es Ident ifica tion to follo w Cultu re reinc ubate d Preli minar y Repor t [] Verif ied Date/ Time: 025 13:59 PARK RANGER Light growt h-cul ture reinc ubate d. ST AINS/ PREPA RATIO NS GS [] Verif ied Date/ Time: 2024 21:49 PARK RANGER Rare (<1/h pf) neutr ophil s Few (1-5/ hpf) Gram Posit daria Cocci in pairs JONES SCEPT IBILI TY RESUL TS Staph yloco ccus lugdu nensi s Antib iotic MINT Clind amyci n Susce ptibl e Dapto mycin Susce ptibl e Eryth romyc in Susce ptibl e Genta micin Susce ptibl e Linez olid Susce ptibl e Oxaci llin Resis tant Tetra cycli ne Susce ptibl e Vanco mycin Susce ptibl e Not Available [facility] Only - [facility] [address] [facility], [place], [address], 11/05/2024 08:56:48 11/01/19 25 11/04/2024 C WOUND wound culture (swab) with gram stain (ne abnormal Print Date/ Time: 09:10 PARK RANGER Patie nt: MICHELLE PHAM Micro biolo gy - Wound s and Tissu es Legen d: c=Cor recte d, F=Res ult Comme nt, S=Alexa cepti ble, I=Int ermed iate, R=Res istan t, N/A=N ot Appli cable PROCE DURE: Wound Cultu re (swab ) ACCES JOSE: 25-03 [phone] with Gram Stain [] SOURC E: Absce ss BODY SITE: COLLE CTED DATE/ TIME: 2024 14:33 PARK RANGER RECEI LISE DATE/ TIME: 2024 19:16 PARK RANGER START DATE/ TIME: 2024 19:16 PARK RANGER FREE TEXT SOURC E: R lower abdom en swab UT ELIMI NARY REPOR TS Preli minar y Repor t [] Verif ied Date/ Time: 025 09:10 PARK RANGER Few Staph yloco ccus speci es Ident ifica tion to follo w Cultu re reinc ubate d Preli minar y Repor t [] Verif ied Date/ Time: 025 13:59 PARK RANGER Light growt h-cul ture reinc ubate d. ST AINS/ PREPA RATIO NS GS [] Verif ied Date/ Time: 2024 21:49 PARK RANGER Rare (<1/h pf) neutr ophil s Few (1-5/ hpf) Gram Posit daria Cocci in pairs Not Available [facility] Only - [facility] [address] [facility], [place], [address], 11/04/2024 10:10:51 11/01/19 25 11/03/2024 C WOUND wound culture (swab) with gram stain (ne abnormal Print Date/ Time: 025 13:59 PARK RANGER Patie nt: MICHELLE PHAM Micro biolo gy - Wound s and Tissu es Legen d: c=Cor recte d, F=Res ult Comme nt, S=Alexa cepti ble, I=Int ermed iate, R=Res istan t, N/A=N ot Appli cable PROCE DURE: Wound Cultu re (swab ) ACCES JOSE: 08 with Gram Stain [] SOURC E: Absce ss BODY SITE: COLLE CTED DATE/ TIME: 2024 14:33 PARK RANGER RECEI LISE DATE/ TIME: 2024 19:16 PARK RANGER START DATE/ TIME: 2024 19:16 PARK RANGER FREE TEXT SOURC E: R lower abdom en swab UT ELIMI NARY REPOR TS Preli minar y Repor t [] Verif ied Date/ Time: 025 13:59 PARK RANGER Light growt h-cul ture reinc ubate d. ST AINS/ PREPA RATIO NS GS [] Verif ied Date/ Time: 2024 21:49 PARK RANGER Rare (<1/h pf) neutr ophil s Few (1-5/ hpf) Gram Posit daria Cocci in pairs Not Available [facility] [address] [place] [address], [address], 11/03/2024 14:59:34 11/01/19 25 11/02/2024 C WOUND wound culture (swab) with gram stain (ne abnormal Print Date/ Time: 2024 21:49 PARK RANGER Patie nt: MICHELLE PHAM Micro biolo gy - Wound s and Tissu es Legen d: c=Cor recte d, F=Res ult Comme nt, S=Alexa cepti ble, I=Int ermed iate, R=Res istan t, N/A=N ot Appli cable PROCE DURE: Wound Cultu re (swab ) ACCES JOSE: [phone] with Gram Stain [] SOURC E: Absce ss BODY SITE: COLLE CTED DATE/ TIME: 2024 14:33 PARK RANGER RECEI LISE DATE/ TIME: 2024 19:16 PARK RANGER START DATE/ TIME: 2024 19:16 PARK RANGER FREE TEXT SOURC E: R lower abdom en swab ST AINS/ PREPA RATIO NS GS [] Verif ied Date/ Time: 2024 21:49 PARK RANGER Rare (<1/h pf) neutr ophil s Few (1-5/ hpf) Gram Posit daria Cocci in pairs Not Available [facility] - [facility] [address] [place] [address], [id number], 11/02/2024 22:49:22 12/19/19 25 12/18/2024 CMP, serum or plasm a comp. met. panel Not Available [facility] [address] [place] [address], [address], 12/18/2024 15:49:08 12/19/19 25 12/18/2024 CMP, serum or plasm a sodium 139 mmol/ L 136-14 6 Not Available [facility] [address] [place] [address], [address], 12/18/2024 15:49:08 12/19/19 25 12/18/2024 CMP, serum or plasm a potassium 4.7 mmol/ L 3.5-5. 1 Not Available [facility] [address] [place] [address], [address], 12/18/2024 15:49:08 12/19/19 25 12/18/2024 CMP, serum or plasm a chloride 105 mmol/ L 98-110 Not Available [facility] [address] [place] [address], [address], 12/18/2024 15:49:08 12/19/19 25 12/18/2024 CMP, serum or plasm a CO2 27 mEq/L 20-32 Not Available [facility] [address] [place] [address], [address], 12/18/2024 15:49:08 12/19/19 25 12/18/2024 CMP, serum or plasm a anion gap 12 mmol/ L 10-22 Not Available [facility] [address] [place] [address], [address], 12/18/2024 15:49:08 12/19/19 25 12/18/2024 CMP, serum or plasm a glucose 228 mg/dL 70-100 high Not Available [facility] [address] [place] [address], [address], 12/18/2024 15:49:08 12/19/19 25 12/18/2024 CMP, serum or plasm a calcium 9.8 mg/dL 8.4-10 .4 Not Available [facility] [address] [place] [address], [id number], 12/18/2024 15:49:08 12/19/19 25 12/18/2024 CMP, serum or plasm a total protein 6.8 g/dL 6.4-8. 3 Not Available [facility] [address] [place] [address], [address], 12/18/2024 15:49:08 12/19/19 25 12/18/2024 CMP, serum or plasm a albumin 4.7 g/dL 3.5-5. 3 Not Available [facility] [address] [place] [address], [address], 12/18/2024 15:49:08 12/19/19 25 12/18/2024 CMP, serum or plasm a ALP 104 U/L 44 - 127 Not Available [facility] [address] [place] [address], [address], 12/18/2024 15:49:08 12/19/19 25 12/18/2024 CMP, serum or plasm a AST (SGOT) 14 U/L 10-40 Not Available [facility] [address] [place] [address], [address], 12/18/2024 15:49:08 12/19/19 25 12/18/2024 CMP, serum or plasm a total bilirubin 1.0 mg/dL 0.2-1. 2 Not Available [facility] [address] [place] [address], [address], 12/18/2024 15:49:08 12/19/19 25 12/18/2024 CMP, serum or plasm a ALT (SGPT) 16 U/L 8-35 Not Available [facility] [address] [place] [address], [address], 12/18/2024 15:49:08 12/19/19 25 12/18/2024 CMP, serum or plasm a BUN 11 mg/dL 7-21 Not Available [facility] [address] [place] [address], [address], 12/18/2024 15:49:08 12/19/19 25 12/18/2024 CMP, serum or plasm a creatinine 0.8 mg/dL 0.7-1. 3 Not Available [facility] [address] [place] [address], [address], 12/18/2024 15:49:08 12/19/19 25 12/18/2024 CMP, serum or plasm a CKD-epi GFR 110 eGFR was calcu lated using the 2020 CKD-E PI equat ion. (Engineer First Assistant servando Kidne y Disea se has an eGFR less than 60 mL/mi n/1.7 3mm for a perio d of three month s or more. ) This calcu latio n has not been valid ated for patie nt ages <18 or >90 years old. Not Available [facility] [address] [place] [address], [address], 12/18/2024 15:49:08 12/19/19 25 12/18/2024 hemog lobin A1c + avera ge gluco se, QN, blood hemoglobin A1C Not Available [facility] [address] [place] [address], [id number], 12/18/2024 16:18:03 12/19/19 25 12/18/2024 hemog lobin A1c + avera ge gluco se, QN, blood HGB A1C 9.8 %_A1C 4.3 - 5.6 high Not Available [facility] [address] [place] [address], [address], 12/18/2024 16:18:03 12/19/19 25 12/18/2024 hemog lobin A1c + avera ge gluco se, QN, blood estimated average glucose 235 mg/dL Not Available [facility] [address] [place] [address], [address], 12/18/2024 16:18:03 12/19/19 25 12/20/2024 lipid panel , serum lipid profile Not Available [facility] [address] [place] [address], [address], 12/20/2024 12:54:47 12/19/19 25 12/20/2024 lipid panel , serum cholesterol 260 mg/dL <25-20 0 high Not Available [facility] [address] [place] [address], [address], 12/20/2024 12:54:47 12/19/19 25 12/20/2024 lipid panel , serum triglyceride 239 mg/dL 15-200 high Not Available [facility] [address] [place] [address], [address], 12/20/2024 12:54:47 12/19/19 25 12/20/2024 lipid panel , serum HDL 41 mg/dL >40 Not Available [facility] [address] [place] [address], [address], 12/20/2024 12:54:47 12/19/19 25 12/20/2024 lipid panel , serum LDL, calculated 171 mg/dL 5-100 high Not Available [facility] [address] [place] [address], [address], 12/20/2024 12:54:47 12/19/19 25 12/20/2024 lipid panel , serum VLDL 48 mg/dL 1-40 high Not Available [facility] [address] [place] [address], [address], 12/20/2024 12:54:47 12/19/19 25 12/20/2024 lipid panel , serum chol/HDL 6.3 ratio 0.0-4. 4 high Not Available [facility] [address] [place] [address], [address], 12/20/2024 12:54:47 06/27/20 24 06/27/2024 CT, angio gram, head + neck, w/ contr ast No observ ation record ed. [facility] Scheduling [address] [facility], [place], [address], 06/27/2024 18:57:27 12/19/19 25 12/18/2024 elect yara cloudgr am, routi ne ECG, 12 leads min; inter preta tion and repor t (PROC ) No observ ation record ed. DE SOTO Not Available 2024 08:52:22 Result Notes None recorded. Problems Name Problem SNOMED Code Status Onset Date Resolution Date Notes Provider Name and Address Organization Details Recorded Time CT of chest abnormal 49113939730 [id number] Completed elevated R. hemidiap hragm on CT 05/2016 (eval cough / hemoptys is). Also, nodules which then improved / resolved on repeat CT 10/2016. Jomar De Oliveira MD [address] [place] [address], [phone], [facility] 5 06:49:55 Coronary arterios clerosis 72071148 Active hx STEMI , , & (NSTEMI) . f/b Cardiolo gy in [facility] (Dr. Mojica). - s/p CABG ([facility] in [facility]). Jomar De Oliveira MD [address] [place] [address], [phone], [facility] 5 06:49:06 Screenin g for malignan t neoplasm of colon Active s/p repeat colonosc opy w/ Polypect ashly x5. Repeat due 5yrs. Jomar De Oliveira MD [address] [place] [address], [phone], [facility] 5 06:53:03 Type 2 diabetes mellitus 23883125 Active 2023 prior hx f/b [facility]. A1c 8.0 on 04/14/22. then down to 7.3. Then (not taking meds) - A1c 12.5 - so meds restarte d and Trucilit y increase d; A1c 9.8 Margaret Simons PA-C [address] [place] [address], [phone], [facility] 5 16:40:33 Erectile dysfunct ion 749942675 Active 2023 Tadalafi l Rx'd . Would refer to Urology if that is insuffic ient. Paris Eugene, DRILL PRESSER, BRAND ADVISOR [address] [facility], [place], [address], [facility] 4 11:47:59 Spinal stenosis 81838351 Completed 202306/27/2024 on Thoracic MRI 2015. s/p eval by Anne Espino 12/2015 where impressi on was symptoms due to peripher al neuropat hy. Paris Eugene APRN, BRAND ADVISOR [address] [place] [address], [place], [phone], [facility] 4 11:48:20 Hyperlip idemia 92752459 Active Atorvast atin (started 04/2015) & fenofibr ate. - LDL 119 on . LDL 171 Margaret Simons PA-C [address] [facility], [facility] [place], [address], [facility] 5 13:58:57 Peripher al nerve disease 621783158 Active w/ subseque nt balance problms & recurren t falls in . Tx Gabapent in. - prior Neurolog y notes suggest hx benefit w/ Tegratol and Duloxeti ne. - note nmL JESUS's (per Cardiolo gy note ) Jomar De Oliveira MD [address] [facility], [place], [address], [facility] 5 06:47:58 Numbness of face 115309432 Active 2023 started associat ed w/ a periorbi denise skin rxn. Several wks p similar episode on left (which resolved ). Tx'd for possible shingles w/ valacycl ovir ([facility]). Skin sx resolved , but persisti ng facial numbness into . MRI of brain; non-spec [facility] dz. neuro on board (Dr. Matute, [facility]). Impressi on trigemin al neuralgi a, started carbamaz apine. Paris Eugene APRN, BRAND ADVISOR [address] [place] [address], [address], [facility] 4 11:50:15 Transien t visual loss 41540081 Active 2023 episode 2018 suggesti ve of hypergly cemia / shifting glc effect (glc 400's then started on insulin shortly before symptoms ). Carotid US then () c/w mild dz (not unexpect ed w/ hx DM & CAD). Paris Eugene APRN, BRAND ADVISOR [address] [place] [address], [address], [facility] 4 11:50:49 Smoker 38630274 Active 2023 Hx some success w/ Zyban in the past (branded name for Bupropio n). So, retrial (generic ) Bupropio n 06/10/22. - hx consider ed Chantix but deferred due to concern for a.e.'s. Paris Eugene APRN, BRAND ADVISOR [address] [place] [address], [phone], [facility] 4 11:51:07 Abscess 924349412 Active 2023 R buttock. tx with I and D, Bactrim then Clinda. R lower abd - Bactrim. culture + for Staphylo coccus luis Mendoza APRN [address] [place] [address], [phone], [facility] 5 18:01:17 Recurren t skin infectio n 486673888 Active I.D. onboard . 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 BENJIE LIM MD [address] [facility], [place], [address], [facility] 5 13:40:00 Cardiac arrhythm ia 024006051 Active 202412/18/24 EKG--NSR ; f/u with Angeliclo ishmael Simons PA-C [address] [facility], [place], [address], [facility] 5 11:31:26 [facility]ia l hyperten jose 25000297 Active 2024 Velma Nevarez [facility] 5 10:03:11 Problem Notes Documentation Provider Name and Address Organization Details Recorded Time [address] [address] Enzo Avitia Vero 49yo M 1975 #[id number] 12/05/2024 Antonia De Oliveira MD, Enzorichard Pham was seen in our office today 12/05/2024, and a copy of that evaluation is enclosed. Thank you for allowing us to participate in the care of your patient. Please contact us with any questions. Sincerely, Electronically Signed by: BENJIE LIM MD Encounter Reason/Date New visit for recurrent cutaneous abscesses. 12/05/2024 - 10:00AM - [address] [facility] Infectious Diseases ([place])ProblemsReviewed Problems Type 2 diabetes mellitus - Onset: 06/27/2024 - prior hx f/b [facility]. A1c 8.0 on 04/14/22. then down to 7.3. 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 Atorvastatin (started 04/2015). - LDL 119 on . p non-compliance / loss of f/u, Total >325, trigs >525, LDL 170. Resume atorvastatin, fenofibrate. Plan repeat panel in . Erectile dysfunction - Onset: 06/27/2024 - Tadalafil Rx'd . Would refer to Urology if that is insufficient. Smoker - Onset: 06/27/2024 - Hx some success w/ Zyban in the past (branded name for Bupropion). So, retrial (generic) Bupropion 06/10/22. - hx considered Chantix but deferred due to concern for a.e.'s. Peripheral nerve disease - Onset: 06/27/2024 - w/ subsequent balance problms & recurrent falls in 2016. Tx Gabapentin. - prior Neurology notes suggest benefit w/ prior tx incl Tegratol and Duloxetine. Transient visual loss - Onset: 06/27/2024 - episode 2018 suggestive of hyperglycemia / shifting glc effect (glc 400's then started on insulin shortly before symptoms). Carotid US then () c/w mild dz (not unexpected w/ hx DM & CAD). Coronary arteriosclerosis - Onset: 06/27/2024 - hx STEMI 2016, 2020, & (NSTEMI) . f/b Cardiology in [place] (Dr. Mojica). s/p CABG 05/24/22 after presenting w/ chest pain and NSTEMI ([facility] in [facility]). Transient cerebral ischemia - Onset: 06/27/2024 Abscess - Onset: 07/18/2024 - R buttock. tx with I and D, Bactrim then Clinda. R lower abd - Bactrim. culture + for Staphylococcus lugdunensis Numbness of face - Onset: 06/27/2024 - started associated w/ a periorbital skin rxn. Several wks p similar episode on left (which resolved). Tx'd for possible shingles w/ valacyclovir ([facility]). Skin sx resolved, but persisting facial numbness into . MRI of brain; non-specific white mater dz. neuro on board (Dr. Matute, [facility]). Impression trigeminal neuralgia, started carbamazapine. Screening for malignant neoplasm of colon - Onset: 06/27/2024 - hx colonoscopy w/ polypectomy at [facility] in 2019. S/p scope 12/07/23. Polypectomy x 5, path pending (repeat due in no longer than 5 yrs) CT of chest abnormal - Onset: 06/27/2024 - elevated R. hemidiaphragm on CT 05/2016 (eval cough / hemoptysis). Also, nodules which then improved / resolved on repeat CT 10/2016. Recurrent skin infection - Onset: 12/05/2024 Allergies Reviewed Allergies NKDA No Known Allergies (Active) OnsetDate: 11/14/2015; Comment: No Known Allergies ; Medications Reviewed Medications NameDate Source aspirin 81 mg tablet,delayed releaseTake 1 tablet(s) every day by oral route.06/27/24 entered Bettie Hartman atorvastatin 80 mg tabletTake 1 tablet(s) every day by oral route.07/24/24 filled surescripts fenofibrate 160 mg tabletTake 1 tablet(s) every day by oral route.07/24/24 filled surescripts Fish OiL 1,000 mg (120 mg-180 mg) capsuleTake 1 capsule(s) every day by oral route.06/27/24 entered Bettie Hartman gabapentin 800 mg tabletTake 1 tablet(s) every day by oral route at bedtime.07/24/24 filled surescripts Jardiance 10 mg tabletTake 1 tablet(s) every day by oral route.07/24/24 filled surescripts lisinopriL 2.5 mg tabletTake 1 tablet(s) every day by oral route.07/24/24 filled surescripts metFORMIN 500 mg tabletTake 2 tablet(s) twice a day by oral route.07/24/24 filled surescripts metoprolol tartrate 25 mg tabletTake 1 tablet(s) twice a day by oral route.07/24/24 filled surescripts nitroglycerin 0.4 mg sublingual tabletPlace 1 tablet under the tongue every 5 minutes up to 3 doses as needed for chest pain.06/27/24 entered Bettie Hartman sulfamethoxazole 800 mg-trimethoprim 160 mg tabletTAKE 1 TABLET BY MOUTH EVERY 12 HOURS FOR 10 DAYS10/31/24 filled surescripts tadalafiL 20 mg tabletTake 1 tablet(s) as needed by oral route.06/27/24 entered Bettie Hartman Trulicity 4.5 mg/0.5 mL subcutaneous pen injectorINJECT 4.5 MG BY SUBCUTANEOUS ROUTE.12/01/24 filled surescripts vitamin B ioxdeqc40/25/24 entered Bettie Hartman Vitamin D006/27/24 entered Bettie Hartman Family HistoryFamily History not reviewed (last reviewed 07/25/2024) Father - Diabetes mellitus - Heart disease - Hypertensive disorder - Hypercholesterolemia - Cerebrovascular accident Mother - Arthritis - Family history of malignant neoplasm - Diabetes mellitus - Hypertensive disorder Maternal Grandmother - Arthritis - Diabetes mellitus Brother - Diabetes mellitus - Hypertensive disorder - Hypercholesterolemia Maternal Grandfather - Heart disease Social HistorySocial History not reviewed (last reviewed 07/20/2024) Substance UseDo you or have you ever smoked tobacco?: Current every day smokerHow many packs per day (PPD)?: 1/2 pack per dayHow long have you smoked?: 27What is your level of alcohol consumption?: OccasionalHow many times per week do you consume alcohol?: Less than 1 time per weekDo you use any illicit or recreational drugs?: NoWhat was the date of your most recent tobacco screening?: 12/05/2024Diet and ExerciseHow many times per week do you exercise?: 1-2 times per weekEducation and OccupationAre you currently employed?: YesWhat 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 So, retrial (generic) Bupropion 06/10/22. - hx considered Chantix but deferred due to concern for a.e.'s., Last Assessed: 10 Jun 2022 10:37AM Type: Chronic Last Edited: 10 Jun 2022 10:37AM ICD9 Code: 305.1 Last Reviewed Date: 20220610 SnomedCode: 98193380 ICD10 Code: F17.200 LastAssessedBy: JOMAR DE OLIVEIRA (Family Medicine) Surgical HistorySurgical & Procedure History not reviewed (last reviewed 06/27/2024) Cabg arterial single - Coronary artery bypass graft (single or multiple) Colonoscopy with biopsy - Colonoscopy (camera from below into colon) Prq card stent w/angio 1 vsl - Cardiac stent Appendectomy - appendectomy Appendectomy Additional HistoryNone recordedHistory of Present IllnessThis is a 49-year-old man with a past medical history of poorly controlled diabetes with the most recent A1c of 12.6% presents to ID clinic to discuss treatment options for recurrent skin abscesses. The patient mentions that he has had skin abscesses several times a year for the past 6 years and these usually occur on his lower abdomen and thigh area. Over the past 6 months, he has had 2 such abscesses, 1 in the right gluteal region and 1 in the lower abdomen. He had a culture from 1 of these that grew methicillin-resistant Staphylococcus lugdunensis. Treatment with oral TMP-SMX usually resolves these infections. He does not shave in the areas where he gets abscesses. He does inject subcutaneous Trulicity on the right side of his abdomen but the abscesses are not located over there. He takes a shower twice a day with Squatch bar soap which is unfragranced. He occasionally moisturizes using lightly fragranced Dove lotion afterwards. He does not recall having problems with recurrent skin abscesses as a teenager. When he does have an active skin abscess, he washes that area with Hibiclens (he does not know the strength of this)Review of SystemsNone recordedPhysical ExamGeneral: Well-nourished man sitting in a chair in no acute distress HEENT: PERRL, EOMI, pink conjunctiva, anicteric, moist oral mucosa, no thrush Neck: supple, no cervical lymphadenopathy Lungs: clear to auscultation bilaterally Heart: normal S1 and S2 with no murmurs, rubs or gallops Abdomen: soft and nontender with normoactive bowel sounds, no flank tenderness Extremities: no cyanosis, clubbing or edema Neuro: AAO x 3 and moving all 4 limbs spontaneously Skin: Area of skin darkening seen at most recent skin abscess just underneath the bellybuttonProcedure DocumentationNone recordedAssessment/Plan- Noted that the patient's most recent A1c is 12.6%. This may likely be what is contributing to recurrent infection and poor healing. Will defer management of this to PCP. The patient reports adherence to all of his prescribed medication-He does not have any predisposing physical factor to recurrent skin abscesses. Will treat each infection as it arises. He is to continue using on fragranced soap as he is using and he can use on fragranced creams such as Cetaphil or CeraVe for moisturizing afterwards if needed. We can attempt using Hibiclens 4% solution to decolonize for MRSA, though this is very rarely effective. Most recent wound cultures did grow methicillin-resistant Staphylococcus lugdunensis-Patient is aware that he can use dry hot compresses as an aid to help with resolution of skin abscesses but they do occur-He will reach out to ID should he develop signs or symptoms of another abscess Return to clinic as needed The plan of care was communicated to the patient. They had an opportunity to participate in decision making and to ask questions. I personally spent a total of 50 minutes on the patient on this date of service including both qefz-uy-rzlp and non zzmu-nw-slvk time. 1.Encounter for screening for infectious and parasitic diseases, lvtjuoyeygiC36.9: Encounter for screening for infectious and parasitic diseases, unspecified 2.Carrier of bacterial disease due to vlduojcnpujxvL31.321: Carrier or suspected carrier of Methicillin susceptible Staphylococcus aureus 3.Recurrent infection of skinL08.9: Local infection of the skin and subcutaneous tissue, unspecified 4.Diabetes with skin wfxgwbjzcnecF52.628: Type 2 diabetes mellitus with other skin complications Return to Office Patient will return to the office as needed Jomar De Oliveira MD [address] [place] [address], [phone], [facility] 12/05/2024 16:21:58 Procedures Surgical History Date Name Laterality Status Provider Name and Address Organization Details Recorded Time 07/18/20 24 I&D completed Ann Mendoza APRN [address] [place] [address], [phone], [facility] 07/18/2024 18:25:04 05/24/20 22 Cabg arterial single completed Jomar De Oliveira MD [address] [place] [address], [phone], [facility] 12/18/2024 06:49:32 appendectomy completed Paris E White, DRILL PRESSER, BRAND ADVISOR [address] [place] [address], [phone], [place] [facility] 06/27/2024 11:51:32 Prq card stent w/angio 1 vsl completed Not Available Health Note 11/28/2024 12:22:20 Colonoscopy with biopsy completed Not Available Health Note 11/28/2024 12:22:20 Imaging Results Imaging Date Name Status LastModified by Organization Details LastModified Time 06/27/2024 CT, angiogram, head + neck, w/ contrast completed [facility] Scheduling [address] [place], [address], 06/27/2024 18:57:27 12/18/2024 electrocardiogram, routine ECG, 12 leads min; interpretation and report (PROC) completed DE SOTO Information not available 12/25/2024 08:52:22 Procedure Notes None recorded. Medical Equipment None Reported. Allergies Allergen ID Allergen Name Allergen Category Reaction Reaction Severity Criticality Documentation Date Start Date Code Code System Note Provider Name and Address Organization Details Recorded Time 2852814 metformin hydrochlo ride medicatio n diarrhea Not available Not available 11/02/20232011 98985 3 RxNorm React ion: Diarr hea; Not Available [facility] 04:36:04 Medications Name Sig Start Date Stop Date Status Note LastModified by Organization Details LastModified Time metformin 500 mg tablet Take 2 tablets twice a day by oral route. 2024 active Not Available Not Available Not Avai lable atorvastat in 80 mg tablet Take 1 tablet every day by oral route. 2024 active Not Available Not Available Not Avai lable clindamyci n HCl 300 mg capsule TAKE 1 CAPSULE BY MOUTH THREE TIMES A DAY WITH MEALS 10/31 completed Not Available Not Available Not Available sulfametho xazole 800 mg-trimeth oprim 160 mg tablet TAKE 1 TABLET BY MOUTH EVERY 12 HOURS FOR 10 DAYS active Not Available Not Available No t Available aspirin 81 mg tablet,del ayed release Take 1 tablet every day by oral route. active Not Available Not Available No t Available gabapentin 800 mg tablet Take 1 tablet every day by oral route at bedtime. 2024 active Not Available Not Available Not Avai lable nitroglyce rin 0.[address] 1 tablet under the tongue every 5 minutes up to 3 doses as needed for chest pain. active Not Available Not Available No t Available lisinopril 2.5 mg tablet Take 1 tablet every day by oral route. 2024 active Not Available Not Available Not Avai lable bupropion HCl XL 150 mg 24 hr tablet, extended release TAKE 1 TABLET BY MOUTH DAILY. QUIT SMOKING 1 TO 2 WEEKS AFTER STARTING MEDICATI ON. 06/27 completed States he has 2 bottle left. Not Available Not Available Not Available tadalafil 20 mg tablet Take 1 tablet as needed by oral route. active Not Available Not Available No t Available metoprolol tartrate 25 mg tablet Take 1 tablet twice a day by oral route. 2024 active Not Available Not Available Not Avai lable fenofibrat e 160 mg tablet Take 1 tablet every day by oral route. 2024 active Not Available Not Available Not Avai lable vitamin B complex active Not Available Not Available Not Available Vitamin D active Not Available Not Alicia ilable Not Available Jardiance 10 mg tablet Take 1 tablet every day by oral route. 2024 active Not Available Not Available Not Avai lable Fish Oil 1,000 mg (120 mg-180 mg) capsule Take 1 capsule every day by oral route. active Not Available Not Available No t Available Trulicity 3 mg/0.5 mL subcutaneo us pen injector ADMINIST ER 3 MG UNDER THE SKIN ONCE WEEKLY 06/27 completed Not Available Not Available Not Available Trulicity 4.5 mg/0.5 mL subcutaneo us pen injector Inject 4.5 mg by subcutan eous route. 2024 active Not Available Not Available Not Avai lable Vitals Date Recorded Body weight Body temperature Heart rate Oxygen saturation Oxygen saturation in Arterial blood by Pulse oximetry Systolic blood pressure Diastolic blood pressure Provider Name and Address Organization Details Last Updated DateTime 4 68097.9 4 g 97.5 [degF] 93 /min 97 % 97 % 126 mm[Hg] 66 mm[Hg] Cecily Finley [facility] 4 11:51:44 Date Recorded Body weight Body temperature Heart rate Oxygen saturation Oxygen saturation in Arterial blood by Pulse oximetry Systolic blood pressure Diastolic blood pressure Provider Name and Address Organization Details Last Updated DateTime 5 39738.4 g 97.5 [degF] 92 /min 97 % 97 % 142 mm[Hg] 80 mm[Hg] Cecily Finley [facility] 5 14:46:03 Date Recorded Body temperature Heart rate Oxygen saturation Oxygen saturation in Arterial blood by Pulse oximetry Systolic blood pressure Diastolic blood pressure Provider Name and Address Organization Details Last Updated DateTime 5 97.3 [degF] 88 /min 98 % 98 % 148 mm[Hg] 80 mm[Hg] [facility] 5 14:46:53 Date Recorded Body weight Body temperature Heart rate Oxygen saturation Oxygen saturation in Arterial blood by Pulse oximetry Systolic blood pressure Diastolic blood pressure Provider Name and Address Organization Details Last Updated DateTime 5 71136.0 3 g 96.2 [degF] 74 /min 97 % 97 % 124 mm[Hg] 76 mm[Hg] Gabino Garcia [facility] 5 10:58:04 Date Recorded Body weight Heart rate Oxygen saturation Oxygen saturation in Arterial blood by Pulse oximetry Systolic blood pressure Diastolic blood pressure Provider Name and Address Organization Details Last Updated DateTime 5 17307.1 7 g 102 /min 100 % 100 % 116 mm[Hg] 78 mm[Hg] [facility] 5 09:49:49 Social History Question Answer Notes LastModified by Organizat ion Details LastModified Time Tobacco Smoking Status Current Every Day Smoker Not Available Health Note 11/28/2024 12:22:21 Do You Have An Advance Directive? No [email or web address] Information not available 11/28/2024 What Is Your Level Of Alcohol Consumption? Occasional [email or web address] Information not available 11/28/2024 How Many Times Per Week Do You Consume Alcohol? Less Than 1 Time Per Week [email or web address] Information not available 11/28/2024 What Is Your Level Of Caffeine Consumption? Moderate [email or web address] Information not available 11/28/2024 Are You Currently Employed? 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 1-2 Times Per Week [email or web address] Information not available 11/28/2024 How Many Packs Per Day (PPD)? 1/2 Pack Per Day [email or web address] Information not available 11/28/2024 How Long Have You Smoked? 27 [email or web address] Information not available 11/28/2024 What Was The Date Of Your Most Recent Tobacco Screening? 12/05/2024 [email or web address] Information not available 11/28/2024 What Is Your Relationship Status? [email or web address] Information not available 11/28/2024 Do You Use Any Illicit Or Recreational Drugs? No [email or web address] Information not available 11/28/2024 Sex: Unknown Functional Status Question Answer Note LastModified by Organizat ion Details LastModified Time What is your exercise level? Occasional [email or web address] Information not available 11/28/2024 Mental Status None recorded. Family History Relationship Description Onset Age of this Age Resolved Age Notes LastModified by Organization Details LastModified Time Father Diabetes mellitus [email or web address] Not available 2023 11:51:49 Father Heart disease [email or web address] Not available 2024 12:22:19 Father Hypertensive disorder [email or web address] Not available 2024 12:22:19 Father Hypercholest erolemia [email or web address] Not available 2024 12:22:19 Father Cerebrovascu lar accident [email or web address] Not available 12:22:19 Mother Arthritis [email or web address] Not available 11/28/2024 12:22:19 Mother Family history of malignant neoplasm [email or web address] Not available 2024 12:22:19 Mother Diabetes mellitus [email or web address] Not available 2024 12:22:19 Mother Hypertensive disorder [email or web address] Not available 2024 12:22:19 Maternal Grandmother Arthritis [email or web address] Not available 11/04 12:22:19 Maternal Grandmother Diabetes mellitus [email or web address] Not available 2024 12:22:19 Brother Diabetes mellitus [email or web address] Not available 2024 12:22:19 Brother Hypertensive disorder [email or web address] Not available 2024 12:22:19 Brother Hypercholest erolemia [email or web address] Not available 2024 12:22:19 Maternal Grandfather Heart disease [email or web address] Not available 2024 12:22:19 Medical History Condition Response Diabetes Y Anxiety Disorder N Bleeding Disorder N Attention-deficit Hyperactivity Disorder N High Blood Pressure Y Arthritis N Hyperlipidemia Y Cancer N Thyroid Problems N Stroke N Asthma N COPD N Depression N Anemia N Seizures N Heart Disease Y Fibromyalgia N Osteoporosis N Kidney Disease N Immunizations Vaccine Type Date Status Note Provider Nam e and Address Organization Details Recorded Time Influenza, split virus, quadrivalent, preservative 0 completed [facility] 06/27/2024 11:51:59 Influenza, split virus, quadrivalent, preservative 8 completed [facility] 06/27/2024 11:51:59 Influenza, split virus, quadrivalent, preservative 6 completed [facility] 06/27/2024 11:51:59 Influenza, split virus, quadrivalent, preservative 7 completed [facility] 06/27/2024 11:51:59 Influenza, MDCK, quadrivalent, PF 2 completed [facility] 06/27/2024 11:51:59 COVID-19 vaccine, vector-nr, rS-Ad26, PF, 0.5 mL 1 completed [facility] 06/27/2024 11:51:59 Influenza, split virus, quadrivalent, PF 1 completed [facility] 06/27/2024 11:51:59 Past Encounters Encounter ID Performer Location Encounter Start Date Encounter Closed Date Diagnosis/Indication Diagnosis SNOMED-CT Code Diagnosis ICD10 Code Diagnosis Note [id number] aPris Eugene APRN, DEE [facility]) [address] [place] [address] 06/27/2024 11:44:00 06/27/2024 12:42:55 Transient cerebral ischemia 939983999 G45.9 Dx added when TIA a leading suspicion, but work up then suggests symptoms likely secondary to hypergylce harpreet, not an acute ischemic event like a TIA. Hyperlipidemia 87295133 E78.5 Type 2 rob betes mellitus 01224276 E11.9 Coronary arteriosclerosis 13929386 I25.10 [id number] [facility] ([place]) [facility] [place] [address] 07/18/2024 16:54:50 07/23/2024 05:01:07 Abscess 912546414 L02.91 [id number] [facility]) [facility] [place] [address] 07/20/2024 10:19:13 07/21/2024 06:54:10 Abscess 341585995 L02.91 [id number] [facility]) [facility] [place] [address] 07/25/2024 11:43:18 07/25/2024 12:03:49 Abscess 250518333 L02.91 [id number] [facility]) [facility] [place] [address] 10/31/2024 14:32:29 10/31/2024 15:01:48 Abscess 584474232 L02.91 R buttock. tx with I and D, Bactrim then Clinda. R lower abd - Bactrim -Enzo has had similar areas in the past - Tx with both Bactrim and Clindamyci n. Unfortunat samantha the last time the Clindamyci n gave him pretty significan t diarrhea for several days, so would like to avoid that. Tx with Bactrim. We have discussed f/u with Dr. Reinoso in the past for these areas, but he'll hold off for now and just tx with abx. He is to return with any worsening swelling redness or if there is drainage or he runs a fever. [id number] Ann Mendoza APRN [facility] ([place]) [address] [place] [address] 11/01/2024 14:37:51 11/01/2024 14:59:48 Abscess 678391271 L02.91 R buttock. tx with I and D, Bactrim then Clinda. R lower abd - Bactrim -Wound cultured today to confirm suspected dx of MRSA. Advised patient to shower using Hibiclens daily or every other day for the next couple of weeks to minimize spreading of infection. Return as discussed yesterday, with any worsening. 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 Atorvastat in (started 04/2015).- LDL 119 on . p non-compli ance / loss of f/u, Total >325, trigs >525, LDL 170. Resume atorvastat in, fenofibrat e. Plan repeat panel in . Peripheral nerve disease 172549996 G64 w/ subsequent balance problms & recurrent falls in 2016. Tx Gabapentin .- prior Neurology notes suggest benefit w/ prior tx incl Tegratol and Duloxetine . Type 2 rob betes mellitus 68103373 E11.9 prior hx f/b [facility]. A1c 8.0 on 04/14/22. then down to 7.3. Then (not taking meds) - A1c 12.5 - so meds restarted and Trucility increased Coronary arteriosclerosis 28826415 I25.10 hx STEMI 2016, 2020, & (NSTEMI) . f/b Cardiology in [place] (Dr. Mojica). s/p CABG 05/24/22 after presenting w/ chest pain and NSTEMI ([facility] in [facility]). Cardiac arrhythmia 47063 7007 I49.9 EKG--NSR; follow up with Cardiology Health Concerns Section Related Observation LastModified by Organization Detai ls LastModified Time None Recorded Concern Status LastModified by Organization Details LastModified Time None Recorded Advance Directives Directive N: Payers Encounter Date Sequence Insurance Name Policy Number Policy Robbins Covered Member ID Robbins Member ID Guarantor Name 07/25/2024 1 [facility] [id number] Enzo L Neer [id number] Enzo L Neer 10/31/2024 1 [facility] [id number] Enzo L Neer [id number] Enzo L Neer 11/01/2024 1 [facility] [id number] Enzo L Neer [id number] Enzo L Neer 12/05/2024 1 [facility] [id number] Enzo L Neer [id number] Enzo L Neer 12/18/2024 1 [facility] [id number] Enzo L Neer [id number] Enzo L Neer Notes Date Note Type Note Provider Name and Address Organization Details Recorded Time 07/25/2024 text/html Cyst to right buttock-prior incision site sealed over, denies any drainage-last Bactrim dose taken this AM-denies change in size-denies fever Ann Mendoza, DRILL PRESSER [address] [facility], [place], [address], [place] [facility] 07/25/2024 12:12:11 10/31/2024 text/html Cyst-located on lower abdomen at right side belt line-first noticed approx 1 week ago, has had similar cyst in same location in past-was extremely painful but now just irritated/swelling has improved-denies drainage or fever-has been taking Tylenol Ann Mendoza APRN [address] [place] [address], [phone], [facility] 10/31/2024 16:43:28 11/01/2024 text/html Cyst-located on lower abdomen at right side belt line-Now with a bit of drainage from the area-Still no fevers Ann DionteMIRNA booth [address] [place] [address], [phone], [facility] 11/02/2024 10:05:10 12/05/2024 text/html This is a 49-year-old man with a past medical history of poorly controlled diabetes with the most recent A1c of 12.6% presents to ID clinic to discuss treatment options for recurrent skin abscesses. The patient mentions that he has had skin abscesses several times a year for the past 6 years and these usually occur on his lower abdomen and thigh area. Over the past 6 months, he has had 2 such abscesses, 1 in the right gluteal region and 1 in the lower abdomen. He had a culture from 1 of these that grew methicillin-resistan t Staphylococcus lugdunensis. Treatment with oral TMP-SMX usually resolves these infections. He does not shave in the areas where he gets abscesses. He does inject subcutaneous Trulicity on the right side of his abdomen but the abscesses are not located over there. He takes a shower twice a day with Squatch bar soap which is unfragranced. He occasionally moisturizes using lightly fragranced Dove lotion afterwards. He does not recall having problems with recurrent skin abscesses as a teenager. When he does have an active skin abscess, he washes that area with Hibiclens (he does not know the strength of this) BENJIE LIM MD [address] [place] [address], [phone], [facility] 12/05/2024 13:43:18 12/18/2024 text/html Hyperlipidemia-p t is taking Atorvastatin and Fenofibrate daily-due for lipids today-denies muscle/joint pain associated with statin DM-does not check BS at home-treated with Jardiance, Metformin and Trulicity-due for A1c-pt is interested in CGM; saw Endocrinology (Dr. Gretchen Holland in [facility]) in the past but has not been back for quite some time-interested in going back to Endo-denies hypoglycemia episodes Peripheral Nerve Disease-controlled with Gabapentin-sx under control with medication CAD-currently takes Lisinopril and Metoprolol-chest pain off and on for the last few days; not associated with shortness of breath-pt has noticed a slight arrhythmia recently-has not seen Cardiology in quite awhile-Saw Dr. Mojica, [place] Margaret Simons PA-C [address] [place] [address], [phone], [facility] 12/19/2024 17:48:14
--- OUTSIDE RECORDS SUMMARY | 2025-02-04 14:25 | XMS_ITS | Referral Summary ---
Author Organization [facility] [place] [address] Address [address] [place] [address] Care Team Providers Care Director Supplier Quality Name Role Phone Kyle Rendon MD Primary Care Provider [phone] Allergies No known active allergies Medications DULoxetine DR (CYMBALTA) 60 mg capsule Take by mouth daily 1 9 Active fenofibrate (TRIGLIDE) 160 mg tablet Take by mouth Active gabapentin (NEURONTIN) 800 mg tablet Take 1 tablet (800 mg total) by mouth 3 times daily Active lisinopril (PRINIVIL,ZESTRI L) 2.5 mg tablet Take 1 tablet (2.5 mg total) by mouth daily Active metFORMIN (GLUCOPHAGE) 1,000 mg tablet Take 1 tablet (1,000 mg total) by mouth 2 (two) times a day 2 9 Active niacin 1,000 mg tablet extended release TAKE 1 TABLET BY MOUTH EVERYDAY AT BEDTIME 5 9 Active omega 1-pqr-szz-fish oil 500-1,000 mg capsule Take 1,000 mg by mouth 2 times daily Active vitamin B complex capsule Take 1 capsule by mouth daily Active Amitiza 8 mcg capsule TAKE 1 CAPSULE (8 MCG TOTAL) BY MOUTH 2 (TWO) TIMES A DAY WITH MEALS 180 capsule 1 0 Active Additional Information Patient not taking.Reported on 12/30/2021 blood-glucose sensor (Dexcom G6 Sensor) device Use as directed for continuous glucose monitoring 3 Device 3 1 Active Additional Information Patient not taking.Reported on 12/30/2021 empagliflozin (JARDIANCE) 10 mg tabletIndication s:type 2 diabetes mellitus Take 1 tablet (10 mg total) by mouth daily 30 tablet 11 1 Active dulaglutide (Trulicity) 3 mg/0.5 mL pen injector Inject 0.5 mL (3 mg total) under the skin every 7 days 6 mL 3 1 Active flash glucose sensor (FreeStyle Lottie 2 Sensor) kit Use as directed for continuous glucose monitoring 1 kit 3 1 Active Additional Information Patient not taking.Reported on 12/30/2021 metoprolol tartrate (LOPRESSOR) 25 mg immediate release tablet TAKE 1 TABLET BY MOUTH EVERY 12 HOURS 60 tablet 1 Active atorvastatin (LIPITOR) 80 mg tablet TAKE 1 TABLET BY MOUTH EVERY DAY 30 tablet 1 Active cholecalciferol (VITAMIN D-3) 25 mcg (1,000 unit) tablet Take 1,000 Units by mouth daily 2 Active sildenafiL (VIAGRA) 100 mg tablet 1 Active tadalafiL (CIALIS) 20 mg tablet 2 Active Brilinta 90 mg tablet TAKE 1 TABLET BY MOUTH TWICE A DAY DIRECTED 2 Active aspirin 81 mg enteric coated tablet Take 1 tablet (81 mg total) by mouth daily 2 Active blood-glucose transmitter (Dexcom G6 Transmitter) device Use as directed for continuous glucose monitoring 1 each 2 2 Active Active Problems Problem Noted Date Diagnosed Date Hx of colonic polyp 11/08/2023 CAD (coronary artery disease) 12/30/2021 Type 2 diabetes mellitus wit h hyperglycemia, without long-term current use of insulin 04/08/2021 HTN (hypertension) 04/08/2021 Hyperlipidemia 04/08/2021 Constipation 06/19/2019 Overview (06/19/2019): Added automatically from request for surgery [id number] Esophageal dysphagia 06/19/2019 Overview (06/19/2019): Added automatically from request for surgery [id number] Social History Tobacco Use Types Packs/Day Years Used Date Smoking Tobacco: Every Day Cigarettes Smokeless Tobacco: Never Tobacco Cessation:Ready to Q uit: Not Asked; Counseling Given: Not Answered Alcohol Use Standard Drinks/Week Comments Yes 1 (1 standard drink = 0.6 oz pur e alcohol) AUDIT-C Answer Date Recorded Q1: How often do you have a drink containing alc ohol? Monthly or less 12/07/2023 Q2: How many drinks containi ng alcohol do you have on a typical day when you are drinking? 3 or 4 12/07/2023 Q3: How often do you have si x or more drinks on one occasion? Never 12/07/2023 Personal Safety Answer Date Recorded Have you ever been in or are you currently in a harmful physical or emotional relationship or is someone making you feel afraid or unsafe? 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 Gender Identity Not on file Sexual Orientation Not on file Last Filed Vital Signs Vital Sign Reading Time Taken Comments Blood Pressure 138/93 12/07/2023 1:51 PM HEAD BANQUET WAITRESS Pulse 79 12/07/2023 1:51 PM HEAD BANQUET WAITRESS Temperature 36.4 C (97.5 F) 12/07/2023 12:06 PM HEAD BANQUET WAITRESS Respiratory Rate 15 12/07/2023 1:51 PM HEAD BANQUET WAITRESS Oxygen Saturation 100% 12/07/2023 1:51 PM HEAD BANQUET WAITRESS Inhaled Oxygen Concentration - - Weight 94.8 kg (209 lb) 12/30/2021 1:11 PM CDT Height 182.9 cm (6') 04/08/2021 2:47 PM CDT Body Mass Index 28.35 04/08/2021 2:47 PM CDT Plan of Treatment Not on file Medical Devices Implanted Type Area Beam Warper Device Identifier Shelf Expiration Date Model / Serial / Lot Stents X 3 N/A: Heart Procedures Procedure Name Priority Date/Time Associated Diagnosis Comments COLONOSCOPY 12/07/2023 1:00 PM HEAD BANQUET WAITRESS HEMOGLOBIN A1C Routine 04/13/2022 LIPID PANEL Routine 04/13/2022 COMPREHENSIVE METABOLIC PANEL Routine 12/30/2021 2:59 PM CDT Type 2 diabetes mellitus with other circulatory complication, without long-term current use of insulin (HCC) ALBUMIN CREATININE RATIO, URINE Routine 12/30/2021 2:59 PM CDT Type 2 diabetes mellitus with other circulatory complication, without long-term current use of insulin (HCC) from Last 3 Months or Most Recently Relevant to Health Maintenance Results * Colonoscopy (12/07/2023 1:00 PM HEAD BANQUET WAITRESS) Anatomical Region Laterality Modality Other Narrative Procedure Note Louis Lee MD - 12/07/2023 1:00 PM CST ENDOSCOPY LAB Patient Name: Enzo Pham Procedure Date: 12/07/2023 1:00 PM Admit Type: Outpatient Room: [facility] Date of : 1975 Instrument Name: [id number] Gender: Male Note Status: Finalized Procedure: Colonoscopy Indications: Surveillance: Personal history of colonic polyps,Last colonoscopy: July 2019 Providers: Rut Lee M.D. Referring MD: Kyle Rendon MD Medicines: Monitored Anesthesia Care Complications: No immediate complications. Estimated Blood Loss: Estimated blood loss was minimal. Procedure: Pre-Anesthesia Assessment: - Immediately prior to administration ofmedications, the patient was re-assessed for adequacy to receive sedatives. - The risks and benefits of the procedure and the sedation options and risks were discussed with the patient. All questions were answered and informed consent was obtained. The benefits, risks and alternatives of theprocedure and sedation were discussed and informed consentwas obtained. All questions were answered. Please referto the signed informed consent document in the medical record. The scope was passed under direct vision.The Colonoscope was introduced through the anus and advanced to the the cecum, identified byappendiceal orifice and ileocecal valve. The colonoscopy was performed without difficulty. The patient tolerated the procedure well. The quality of the bowel preparation was good. The quality of the bowel preparation was evaluated using the BBPS (BostonBowel Preparation Scale) with scores of: Right Colon = 3, Transverse Colon = 3 and Left Colon = 3 (entiremucosa seen well with no residual staining, smallfragments of stool or opaque liquid). The total BBPS score equals 9. The bowel preparation used was Miralaxvia split dose instruction. Bowel prep was administered using a split dose. Findings: Five sessile polyps were found in the descending colon and ascending colon. The polyps were 3 to 6 mm in size. Four of these polyps were removed with a cold snare. One was removed with cold forceps.Resection and retrieval were complete. The exam was otherwise without abnormality on direct and retroflexion views. Impression: - Five 3 to 6 mm polyps, removed with a cold snareand cold forceps. Resected and retrieved. - The examination was otherwise normal on directand retroflexion views. Recommendation: - Await pathology results. Repeat colonoscopy in 5 years for surveillance. Electronically signed by Rut Lee MD Rut Lee M.D. 12/07/2023 1:32:33 PM Number of Addenda: 0 Note Initiated On: 12/07/2023 1:00 PM Scope Withdrawal Time: 0 hours 8 minutes 42 seconds Scope In: 1:14:44 PM Scope Out: 1:28:13 PM us Loius Lee MD ENDOSCOPY PROCEDURES Final Result * Hemoglobin A1c (04/13/2022) Blood specimen (specimen) Historical Provider MD LAB BLOOD ORDERABLES Catrachita l Result Performing Organization Address [facility] Co de Phone Number EXTERNAL LAB * Lipid panel (04/13/2022) Blood specimen (specimen) Historical Provider MD LAB BLOOD ORDERABLES Catrachita l Result Performing Organization Address [facility] Co de Phone Number EXTERNAL LAB * (ABNORMAL) Albumin Creatinine Ratio, Urine (12/30/2021 2:59 PM CDT) Microalb, Ur 30.4(H) 0.0 - 22.9 mg/L [facility] Random Urine Creatinine 90.5 mg/dL [facility] Microalb/Creat Ratio 33.6(H) 0.0 - 29.9 mg/g [facility] Urine 12/30/2021 2:59 PM CDT 12/30/2021 3:25 PM CDT Result [facility] Guadalupe Akhtar MD PhD LAB URINE JI GERARD Final Result Performing Organization Address [facility] de Phone Number [facility] * (ABNORMAL) Comprehensive metabolic panel (12/30/2021 2:59 PM CDT) Total Protein 7.1 6.1 - 8.4 g/dL [facility] Albumin 5.1 3.5 - 5.2 g/dL [facility] Calcium 10.1 8.6 - 10.3 mg/dL [facility] Comment:Repeated and Verifie d BUN 18 7 - 23 mg/dL [facility] Total Bilirubin 0.59 0.20 - 1.40 mg/dL [facility] Alk Phos, Total 80 35 - 129 IU/L [facility] AST (SGOT) 17 11 - 47 IU/L [facility] ALT (SGPT) 20 6 - 53 IU/L [facility] Creatinine 0.76 0.70 - 1.30 mg/dL [facility] Sodium 138 135 - 145 mmol/L [facility] Potassium 4.5 3.3 - 5.1 mmol/L [facility] Chloride 101 95 - 107 mmol/L [facility] CO2 Content 21 21 - 29 mmol/L [facility] Glucose 154(H) 64 - 99 mg/dL [facility] Comment: NONFASTING GLUCOSE RANGE = 64-199 mg/dL FASTING GLUCOSE 64 - 99 = NORMAL FASTING GLUCOSE 100 - 125 = IMPAIRED FASTING GLUCOSE FASTING GLUCOSE >=126 = PROVISIONAL DIAGNOSIS OF DIABETES eGFR >90.0 >60.0 mL/min/1.7 3 m2 [facility] Comment:eGFR updated to new CKD-EPI (2020) calculation without race on 08/17/21. Blood specimen (specimen) 12/30/2021 2:59 PM CDT 12/30/2021 3:25 PM CDT Guadalupe Akhtar MD PhD LAB BLOOD JI GERARD Final Result [facility] from Last 3 Months or Most Recently Relevant to Health Maintenance Insurance [employer] OPEN ACCESS CIGNA CIGNA Advance Directives For more information, please contact: [phone] * Full Code (Latest Code Status on File) Date Activated Date Inactivated Comments 12/07/2023 12:00 PM 12/07/2023 5:58 PM * Full Code Date Activated Date Inactivated Comments 07/05/2019 1:12 PM 07/05/2019 7:19 PM Care Teams Director Supplier Quality Relationship Specialty Start Date End Date Kyle Rendon MD [address] [place] [address] PCP - General Family Medicine 10/03/17
--- OUTSIDE RECORDS SUMMARY | 2025-02-04 14:25 | XMS_ITS | Clinical Summary ---
Author Organization [facility] Address [address] [place] [address] Care Team Providers Care Fender Finisher Name Role Phone Unavailable Primary Care Provider Unavailabl e Social History Tobacco Use Types Packs/Day Years Used Date Smoking Tobacco: Smoker, Current Status Unknown Sex and Gender Information Value Date Recorded Sex Assigned at Not on file Legal Sex Male 9:53 PM CDT Gender Identity Not on file Sexual Orientation Not on file Last Filed Vital Signs Vital Sign Reading Time Taken Comments Blood Pressure 140/86 03/27/2016 6:44 PM CDT Pulse 104 03/27/2016 6:44 PM CDT Temperature 35.8 C (96.5 F) 06/19/2012 11:14 AM CDT Respiratory Rate 16 06/19/2012 11:14 AM CDT Oxygen Saturation - - Inhaled Oxygen Concentration - - Weight 113.4 kg (250 lb) 06/19/2012 11:14 AM CDT Height 185.4 cm (6' 1 ) 06/19/2012 11:14 AM CDT Body Mass Index 32.98 06/19/2012 11:14 AM CDT Plan of Treatment Health Maintenance Due Date Last Done Comments Colorectal Cancer Screening Colonoscopy (10 Years) 1977 Annual Physical 1980 Hepatitis C 1995 DTaP, Tdap and Td Vaccines ( 1 - Tdap) 1996 Hepatitis B Vaccines (1 of 3 - 19+ 3-dose series) 1996 COVID-19 Vaccine (2023-2 5 season) 2024 Meningococcal B Vaccine Aged Out No l onger eligible based on patient's age to complete this topic Meningococcal Vaccine Aged Out No carlos shanique eligible based on patient's age to complete this topic Pneumococcal Vaccine: Pediat rics (0 to 5 Years) and At-Risk Patients (6 to 49 Years) Aged Out No longer eligible b ased on patient's age to complete this topic RSV Immunizations Under 20 Months Aged Out No longer eligible based on patient's age to complete this topic
--- OUTSIDE RECORDS SUMMARY | 2025-02-04 14:25 | XMS_ITS | Clinical Summary ---
Author Organization [facility] [place] [address] Address [address] [place] [address] Care Team Providers Care Driller Portable Name Role Phone Kyle Rendon MD Primary Care Provider [phone] Allergies No known active allergies Medications DULoxetine [...] EVERYDAY AT BEDTIME 5 9 Active omega 2-fec-edn-fish oil 500-1,000 mg capsule Take 1,000 mg [...] (06/19/2019): Added automatically from request for surgery [id number] Esophageal dysphagia 06/19/2019 Overview (06/19/2019): Added automatically from request for surgery [id number] Surgical History Surgery Date Site/Laterality Comments APPENDECTOMY 10/03/2008 - 10/02/[address] ENT PLACEMENT 10/03/2016 - 10/02/2017 x3 Medical History Medical History Date Comments CAD (coronary artery disease) [place] 2017 DM type 2 (diabetes mellitus, type 2) (HCC) Anxiety Spinal stenosis Dyslipidemia GERD (gastroesophageal reflux disease) Peripheral neuropathy Myocardial infarction (HCC) 2017 Hypertension Hyperlipidemia Diverticulosis Kidney stone TIA (transient ischemic attack) 2015 Social History Tobacco Use Types Packs/Day Years [...] on file 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 Gender Identity Not on file Sexual Orientation Not on file Obstetrics History Last Filed Vital Signs Vital Sign Reading Time Taken Comments Blood Pressure 138/93 12/07/2023 1:51 PM SETTER COLD ROLLING MACHINE Pulse 79 12/07/2023 1:51 PM SETTER COLD ROLLING MACHINE Temperature 36.4 C (97.5 F) 12/07/2023 12:06 PM SETTER COLD ROLLING MACHINE Respiratory Rate 15 12/07/2023 1:51 PM SETTER COLD ROLLING MACHINE Oxygen Saturation 100% 12/07/2023 1:51 PM SETTER COLD ROLLING MACHINE Inhaled Oxygen Concentration - - Weight 94.8 kg (209 lb) 12/30/2021 1:11 PM CDT Height 182.9 cm (6') 04/08/2021 2:47 PM CDT Body Mass Index 28.35 04/08/2021 2:47 PM CDT Plan of Treatment Health Maintenance Due Date Last Done Comments Depression Screening 1975 Hepatitis C Screening 1975 Dilated Eye Exam 1975 Foot Exam 1975 DTaP/Tdap/Td Vaccine (1 - Tdap) 1988 Hepatitis B Screening 1995 Regular Well Visit/Exam 18-64 1995 Pneumococcal vaccine <65 (1 of 2 - PCV) 1996 Hemoglobin A1C 10/14/2022 04/13/2022, 12/03, 04/08/2021 Albumin Creatinine Ratio, Urine 12/30/2022 2, 04/08/2021 eGFR 12/30/2022 12/30/2021, 04/08/2021 Lipid Panel 04/13/2023 04/13/2022, 12/30/2021 Influenza Vaccine (Season Ended) 2025 11/05/2019, 07/18/2018, 08/10/2017, Additional history exists Colon Cancer Screening-Colonoscopy 12/06/20332023, 07/05/2019 Medical Devices Implanted Type Area Dry Box Operator Device Identifier Shelf Expiration Date Model / Serial / Lot Stents X 3 N/A: Heart Procedures Procedure Name Priority Date/Time Associated Diagnosis Comments COLONOSCOPY 12/07/2023 1:00 PM SETTER COLD ROLLING MACHINE HEMOGLOBIN A1C Routine 04/13/2022 LIPID PANEL Routine [...] Maintenance Results * Colonoscopy (12/07/2023 1:00 PM SETTER COLD ROLLING MACHINE) Anatomical Region Laterality Modality Other Narrative Procedure Note Louis Lee MD - 12/07/2023 1:00 PM CST ENDOSCOPY LAB Patient Name: Enzo Pham Procedure Date: 12/07/2023 1:00 PM Admit Type: Outpatient Room: [facility] Date of : 1975 Instrument Name: -[id number] Gender: Male Note Status: Finalized Procedure: Colonoscopy [...] In: 1:14:44 PM Scope Out: 1:28:13 PM Louis Lee MD ENDOSCOPY PROCEDURES Final Result * Hemoglobin A1c (04/13/2022) Blood specimen (specimen) Historical Provider LAB BLOOD ORDERABLES Catrachita l Result EXTERNAL LAB * Lipid panel (04/13/2022) Blood specimen (specimen) Historical Provider LAB BLOOD ORDERABLES Catrachita l Result EXTERNAL LAB * (ABNORMAL) Albumin Creatinine Ratio, Urine (12/30/2021 2:59 PM CDT) Microalb, Ur 30.4(H) 0.0 - 22.9 mg/L [facility] Random Urine Creatinine 90.5 mg/dL [facility] Microalb/Creat Ratio 33.6(H) 0.0 - 29.9 mg/g [facility] Urine 12/30/2021 2:59 PM CDT 12/30/2021 3:25 PM CDT us Guadalupe Akhtar MD PhD LAB URINE ORDE MOUSTAPHA Final Result [facility] * (ABNORMAL) [...] PhD LAB BLOOD JI GERARD Final Result [facility] from Last 3 Months or Most Recently Relevant to Health Maintenance Insurance [employer] OPEN ACCESS [employer] Advance Directives For more information, please contact: [phone] * Full Code (Latest Code Status on File) Date Activated Date Inactivated Comments 12/07/2023 12:00 PM 12/07/2023 5:58 PM * Full Code Date Activated Date Inactivated Comments 07/05/2019 1:12 PM 07/05/2019 7:19 PM Care Teams Driller Portable Relationship Specialty Start Date End Date Kyle Rendon MD [address] [place] [address] PCP - General Family Medicine 10/03/17
--- OUTSIDE RECORDS SUMMARY | 2025-02-04 14:25 | XMS_ITS | Clinical Summary ---
Author Organization [facility] Address [address] [place] [address] Care Team Providers Care Car Dispatcher Name Role Phone Kyle Rendon MD Primary Care Provider [phone] Source Comments [facility],non-owned Affiliates and Associated Physician Practices is amultiple site organization consisting of ambulatory clinics and hospital sitesin [place], [place], [place] and [place]. This disclosure is being madepursuant to the Care Everywhere program and may not contain all information available regarding this patient. Last updated 18.[facility] Allergies No known active allergies Medications * Be aware that medications may not be up to date on this document. Alwaysverify current medications with the patient. CARBAMAZEPINE PO Act daria GABAPENTIN EX Active metyraPONE (METOPIRONE PO) Acti ve LISINOPRIL PO Active GLIPIZIDE PO Active METFORMIN HCL PO Act daria DULOXETINE HCL PO Active ATORVASTATIN CALCIUM PO Active NIACIN CR PO Active aspirin (ASPIRIN) 325 MG tablet Take 325 mg by mouth once daily Active [place]-3 Fatty Acids (FISH OIL PO) Active Dulaglutide (TRULICITY SC) Activ e Social History Tobacco Use Types Packs/Day Years Used Date Smoking Tobacco: Every Day Smokeless Tobacco: Never Sex and Gender Information Value Date Recorded Sex Assigned at Not on file Legal Sex Male 11:00 AM CDT Gender Identity Not on file Sexual Orientation Not on file Last Filed Vital Signs Vital Sign Reading Time Taken Comments Blood Pressure 130/78 06/12/2019 12:56 PM CDT Pulse 85 06/12/2019 12:56 PM CDT Temperature 37.5 C (99.5 F) 06/12/2019 12:56 PM CDT Respiratory Rate 17 06/12/2019 12:56 PM CDT Oxygen Saturation 97% 06/12/2019 12:56 PM CDT Inhaled Oxygen Concentration - - Weight 106.6 kg (235 lb) 06/12/2019 12:56 PM CDT Height 182.9 cm (6') 06/12/2019 12:56 PM CDT Body Mass Index 31.87 06/12/2019 12:56 PM CDT Plan of Treatment Health Maintenance Due Date Last Done Comments COLOGUARD (AGES 45-75) - COL ON CA SCREENING 1977 COLON MONITORING 1977 COLONOSCOPY - COLON CA SCREENING 1977 CT COLONOGRAPHY - COLON CA SCREENING 1975 Colorectal Cancer Screening 1977 FIT - COLON CA SCREENING 1977 FLEX SIG - COLON CA SCREENING 1977 HIV SCREENING 1992 HEPATITIS C SCREENING 10/19/1995 DTAP/TDAP/TD VACCINES (1 - Tdap) 1996 HEPATITIS B VACCINE (1 of 3 - 19+ 3-dose series) 1996 SCREENING FOR DIABETES 06/12/2019 COVID-19 VACCINE (1 - 2023-2 5 season) 2024 DEPRESSION SCREENING 10/03/2024 INFLUENZA VACCINE (Season Ended) 2025 ZOSTER VACCINE (1 of 2) 2027 HIB VACCINE Aged Out No longer eligi ble based on patient's age to complete this topic HPV VACCINE Aged Out No longer eligi ble based on patient's age to complete this topic MENINGOCOCCAL (Group B) VACC INE SHARED DECISION-MAKING Aged Out No longer eligibl e based on patient's age to complete this topic MENINGOCOCCAL GROUPS A/C/Y/W VACCINE Aged Out No longer eligible b ased on patient's age to complete this topic PNEUMOCOCCAL VACCINE Aged Out No long er eligible based on patient's age to complete this topic Insurance [facility] [place] Address: [facility] [id number] [place] [address] Care Teams Car Dispatcher Relationship Specialty Start Date End Date Kyle Rendon MD [address] [place] [phone] PCP - General Family Medicine 06/12/19
== END 2025-02-04 13:48 | disposition home or self-care (01) ==
PROVIDERS: Visit Provider Internal Medicine Cardiovascular Disease
DX: R93.1 Abnormal findings on diagnostic imaging of heart and coronary circulation (principal); R06.09 Other forms of dyspnea
CPT/HCPCS: 93306

== ENCOUNTER 2025-08-14 07:54 | Outpatient (CLI) | payer OTHER, SELFPAY ==
--- NOTE | ~2025-08-14 | NM_ITS ---
EXAMINATION: NM dara stress w perfusion DATE: 08/14/2025 10:54 INDICATION: Chest pain TECHNIQUE: Rest images were obtained following intravenous administration of 10.3 mCi Tc99m tetrofosmin (Myoview). The patient was infused intravenously with Lexiscan (Regadenoson). Then, 29.5 mCi Tc99m tetrofosmin (Myoview) was administered intravenously, and stress images were obtained, initially in the supine position with repeat post stress imaging obtained in the prone position. Data was reconstructed into short axis and horizontal and vertical long axis SPECT images. Gated SPECT images were also obtained. COMPARISON: 10/14/2017 FINDINGS: Moderate severity nonreversible perfusion defect involving the basilar inferior and basilar inferolateral segments on both the rest and stress images consistent with infarct. Reversible portion of the perfusion defect extends further into the mid inferolateral segment consistent with ischemia. There is an additional small region of mild reversible ischemia at the anterior apical segment. There is normal left ventricular chamber size. There is hypokinesis along the basilar inferior and inferolateral segments on the gated imaging. Normal left ventricular ejection fraction measuring 62%. IMPRESSION: 1. Similar pattern of a combination of fixed infarct at the basilar inferior and basilar inferolateral segments and adjacent reversible ischemia at the mid inferolateral segment with associated hypokinesis. 2. Second small region of mild reversible ischemia at the anteroapical segment which also appears unchanged. 3. Normal left. Ventricular ejection fraction measuring 62%. Reviewed, dictated and finalized at location A. ROOM TENDER IMPRESSION: 1. Similar pattern of a combination of fixed infarct at the basilar inferior an d basilar inferolateral segments and adjacent reversible ischemia at the mid in ferolateral segment with associated hypokinesis. 2. Second small region of mild reversible ischemia at the anteroapical segment which also appears unchanged. 3. Normal left. Ventricular ejection fraction measuring 62%.
--- OUTSIDE RECORDS SUMMARY | 2025-08-14 08:03 | XMS_ITS | Clinical Summary ---
Author Organization [facility] Address [address] [place] [address] Care Team Providers Care Business Planning Manager Name Role Phone Kyle Rendon MD Primary Care Provider [phone] Source Comments [facility],non-owned Affiliates and Associated Physician Practices is amultiple site organization consisting of ambulatory clinics and hospital sitesin [place], [place], [place] and [place]. This disclosure is being madepursuant to the Care Everywhere program and may not contain all information available regarding this patient. Last updated 18.[employer] [facility] Allergies No known active allergies Medications * [...] 325 mg by mouth once daily Active Royal-3 Fatty Acids (FISH OIL PO) Active Dulaglutide [...] 3-dose series) 1996 SCREENING FOR DIABETES 06/12/2019 DEPRESSION SCREENING 10/03/2024 COVID-19 VACCINE (1 - 2023-2 5 season) 2025 INFLUENZA VACCINE (#1) 2025 ZOSTER VACCINE (1 of 2) 2027 [...] patient's age to complete this topic Insurance Care Teams Business Planning Manager Relationship Specialty Start Date End Date Kyle Rendon MD [address] [place] [phone] PCP - General Family Medicine 06/12/19
--- OUTSIDE RECORDS SUMMARY | 2025-08-14 08:03 | XMS_ITS | Clinical Summary ---
Author Organization [facility] Address [address] [place] [address] Care Team Providers Care Staffing Manager Name Role Phone Unavailable Primary Care Provider [...] 11:14 AM CDT Height 185.4 cm (6' 1) 06/19/2012 11:14 AM CDT Body Mass Index 32.98 06/19/2012 11:14 AM CDT Plan of Treatment Health Maintenance Due Date Last Done Comments Colorectal Cancer Screening Colonoscopy (10 Years) 1975 Annual Physical 1980 Hepatitis C 1995 DTaP, Tdap and Td Vaccines ( 1 - Tdap) 1996 Hepatitis B Vaccines (1 of 3 - 19+ 3-dose series) 1996 COVID-19 Vaccine (2024-2 6 season) 2025 Influenza Adult (#1) 2025 Hepatitis A Vaccines Aged Out No long er eligible based on patient's age to complete this topic Meningococcal B Vaccine Aged Out No l [...]
--- OUTSIDE RECORDS SUMMARY | 2025-08-14 08:03 | XMS_ITS | Clinical Summary ---
Author Organization [facility] [place] [address] [facility] [address] Address [address] [facility] [address] [place] [address] Care Team Providers Care Entertainment Agent Name Role Phone Kyle Rendon MD Primary Care Provider [phone] Allergies No known active allergies Medications DULoxetine [...] EVERYDAY AT BEDTIME 5 9 Active omega 2-amp-kbw-fish oil 500-1,000 mg capsule Take 1,000 mg [...] (06/19/2019): Added automatically from request for surgery [id number] Esophageal dysphagia 06/19/2019 Overview (06/19/2019): Added automatically from request for surgery [id number] Surgical History Surgery Date Site/Laterality Comments APPENDECTOMY 10/03/2008 - 10/02/[address] ENT PLACEMENT 10/03/2016 - 10/02/2017 x3 Medical History Medical History Date Comments CAD (coronary artery disease) [place] 2016 DM type 2 (diabetes mellitus, type 2) Anxiety Spinal stenosis Dyslipidemia GERD (gastroesophageal reflux [...] on file Legal Sex Male 3:34 AM FIELD SALES AGENT Gender Identity Not on file Sexual Orientation Not on file Last Filed Vital Signs Vital Sign Reading Time Taken Comments Blood Pressure 138/93 12/07/2023 1:51 PM FIELD SALES AGENT Pulse 79 12/07/2023 1:51 PM FIELD SALES AGENT Temperature 36.4 C (97.5 F) 12/07/2023 12:06 PM FIELD SALES AGENT Respiratory Rate 15 12/07/2023 1:51 PM FIELD SALES AGENT Oxygen Saturation 100% 12/07/2023 1:51 PM FIELD SALES AGENT Inhaled Oxygen Concentration - - Weight 94.8 [...] - PCV) 1996 Hemoglobin A1C 10/14/2022 04/13/2022, 03/, 04/08/2021 Albumin Creatinine Ratio, Urine 12/30/2022 2, 04/08/2021 eGFR 12/30/2022 12/30/2021, 04/08/2021 Lipid Panel 04/13/2023 04/13/2022, 12/30/2021 Influenza Vaccine (#1) 2025 , 07/18/2018, 08/10/2017, Additional history exists Colon Cancer Screening-Colonoscopy 12/06/20332023, 07/05/2019 Medical Devices Implanted Type Area Gear Tester Device Identifier Shelf Expiration Date Model / Serial / Lot Stents X 3 N/A: Heart Procedures Procedure Name Priority Date/Time Associated Diagnosis Comments COLONOSCOPY 12/07/2023 1:00 PM FIELD SALES AGENT HEMOGLOBIN A1C Routine 04/13/2022 LIPID PANEL Routine [...] Maintenance Results * Colonoscopy (12/07/2023 1:00 PM FIELD SALES AGENT) Anatomical Region Laterality Modality Other Narrative Procedure Note Louis Lee MD - 12/07/2023 1:00 PM CST ENDOSCOPY LAB Patient Name: Enzo Pham Procedure Date: 12/07/2023 1:00 PM Admit Type: Outpatient Room: [facility] 2 Date of : 1975 Instrument Name: [id number] [...] Provider LAB BLOOD ORDERABLES Catrachita l Result Performing Organization Address City/[facility]/ZIP Co de Phone Number EXTERNAL LAB * [...] us Guadalupe Akhtar MD PhD LAB URINE ORDFely GERARD Final Result [facility] * (ABNORMAL) [...] Guadalupe Akhtar MD PhD LAB BLOOD JI TORRESGÓMEZ Final Result [facility] from Last 3 Months or Most Recently Relevant to Health Maintenance Insurance [employer] OPEN ACCESS [employer] Advance Directives For more information, please contact: [phone] * Full Code (Latest Code Status on File) Date Activated Date Inactivated Comments 12/07/2023 12:00 PM 12/07/2023 5:58 PM * Full Code Date Activated Date Inactivated Comments 07/05/2019 1:12 PM 07/05/2019 7:19 PM Care Teams Entertainment Agent Relationship Specialty Start Date End Date Kyle Rendon MD [address] [place] [address] PCP - General Family Medicine 10/03/17
--- OUTSIDE RECORDS SUMMARY | 2025-08-14 08:03 | XMS_ITS | Patient Health Record ---
Author Organization [facility] Address [address] [place], [place] [address] Care Team Providers Care Cardiac Nurse Specialist Name Role Phone Kyle Rendon Unavailable Unavailable Reason For Referral No Information Social History Social History Additional Details Category Social Info Options Details Migrated Social History Migrated Social History Alcohol intake : , History of tobacco use : Current every day smoker , Smoking Status : Current every day smoker Plan Of Treatment No Information Insurance Providers Payer Name Payer Address Payer Phone Subscriber Number Group Number Insured Name Patient Relationship to Insured Coverage Start Date Coverage End Date CIG[employer] [address] [place] [address] [id number] ROSALES BROWN Self - patient is the insured
--- NOTE | 2025-08-14 08:41 | EST_ITS ---
Patient Info Name: Enzo Pham Age: 49 years : 1975 Gender: Male Ht: 72 in Wt: 216 lbs BSA: 2.25 m2 HR: 77 bpm BP: 113 / 77 mmHg Exam Date: 08/14/2025 8:41 AM Patient Status: O Admit Date: 08/14/2025 Exam Type: CA stress dara w NM A regadenoson stress test was performed. Staff Referring Physician: Simon Mojica DO Attending Provider: Simon Mojica DO Exercise Technologist: Carol Ann Jimenez Exercise Physician: Simon Mojica DO Summary 1. 1. Negative lexiscan stress test for ischemic ST changes by ECG criteria. 2. 2. Stable hemodynamics throughout the test. 3. 3. Nuclear scan to follow and will be reported separately. Please correlate with it. 4. 4. Patient informed of the above results. Protocol: Lexiscan Stress ECG Details Stage: REST Duration (min): 0 min : 56 sec HR (bpm): 77 SBP (mmHg): 113 DBP (mmHg): 77 Stage: REST Duration (min): 4 min : 34 sec HR (bpm): 83 SBP (mmHg): 113 DBP (mmHg): 77 Stage: STAGE 1 Duration (min): 0 min : 59 sec HR (bpm): 86 SBP (mmHg): 126 DBP (mmHg): 74 Stage: RECOVERY Duration (min): 1 min : 0 sec HR (bpm): 89 SBP (mmHg): 126 DBP (mmHg): 74 Stage: RECOVERY Duration (min): 2 min : 0 sec HR (bpm): 88 SBP (mmHg): 126 DBP (mmHg): 74 Stage: RECOVERY Duration (min): 3 min : 0 sec HR (bpm): 87 SBP (mmHg): 126 DBP (mmHg): 73 Stage: RECOVERY Duration (min): 3 min : 6 sec HR (bpm): 87 SBP (mmHg): 126 DBP (mmHg): 73 Rest HR: 83 bpm Peak HR: 93 bpm Rest Sys BP: 113 mmHg Peak Sys BP: 126 mmHg Max Pred HR: 173 bpm % Max Pred HR: 54 % Target HR: 147 bpm Max RPP: 11,718 bpm*mmHg Termination Reason: Completed protocol Cardiac Symptoms: Shortness of breath Total Time: 1 min : 0 sec Rest Gant BP: 77 mmHg Peak Gant BP: 74 mmHg Total Dose: 0.4 mg Resting ECG Sinus rhythm, inferior infarct, consider lateral infarct, age indeterminate. Stress ECG No ST changes. Arrhythmias None. Report Signatures
== END 2025-08-14 07:55 | disposition home or self-care (01) ==
PROVIDERS: Visit Provider Internal Medicine Cardiovascular Disease
DX: R07.9 Chest pain, unspecified (principal); I67.82 Cerebral ischemia
CPT/HCPCS: 78452; 93017; A9502; J2785

== ENCOUNTER 2025-09-09 01:01 | Day surgery (SDC) | payer OTHER, SELFPAY ==
[2025-09-06 11:27] VITALS: BMI 28.9
[2025-09-09] VITALS (11 sets, daily range): BP systolic 107–135; BP diastolic 66–93; PULSE 71–83; RESP 12–19; TEMP 36.6; O2SAT 97–100
--- OUTSIDE RECORDS SUMMARY | 2025-09-09 01:08 | XMS_ITS | Clinical Summary ---
Author Organization [facility] Address [address] [place] [address] Care Team Providers Care Vacuum Frame Operator Name Role Phone Unavailable Primary Care Provider [...]
--- OUTSIDE RECORDS SUMMARY | 2025-09-09 01:09 | XMS_ITS | Patient Health Record ---
Author Organization [facility] Address [address] [place], [place] [address] Care Team Providers Care Nickel Operator Name Role Phone Kyle Rendon Unavailable Unavailable [...] Date Coverage End Date C[employer] [address] [place] [id number] ROSALES BROWN Self - patient is the insured
[2025-09-09 10:45] LABS: Hematocrit 46.5 % (42.0-52.0); Hemoglobin 16.2 g/dL (14.0-18.0); Immature Granulocyte Percent A 0.5 % (0-0.5); Lymphocytes Absolute Auto 2.59 K/mm3 (0.9-3.2); Mean Corpuscular HGB Conc 34.8 g/dl (32-36); Mean Corpuscular Hemoglobin 31.8 pg (26-34); Mean Corpuscular Volume 91.4 fl (80-100); Nucleated Red Blood Cells Absolute Auto 0.000 K/mm3 (0.0-0.012); Nucleated Red Blood Cells Perc 0.0 % (0.0-0.2); Platelet Count Result 330 k/mm3 (150-375); Red Blood Count 5.09 M/mm3 (4.6-6.20); White Blood Count 9.2 K/mm3 (4.5-10.0)
[2025-09-09 11:09] LABS: Anion Gap 9 mmol/L (4-12); Blood Urea Nitrogen 16 mg/dL (9-20); Calcium 9.5 mg/dL (8.4-10.2); Carbon Dioxide 26 mmol/L (22-30); Chloride 103 mmol/L (98-107); Estimated CRCL calculation 136 ml/min; Estimated Glomerular Filt Rate > 60; Glucose 216 mg/dL (65-110); Potassium 4.1 mmol/L (3.4-5.0); Sodium 138 mmol/L (137-145)
--- NOTE | 2025-09-09 11:25 | WPDHPUPDATE1 ---
History and Physical Update Update Date/Time: 09/09/25 11:25 History and Physical has been reviewed, including an updated exam of the patient. There are NO changes in the patient's condition. Risks, benefits, and alternatives have been discussed and questions answered. Patient agrees to proceed with procedure.
--- NOTE | 2025-09-09 11:25 | WPDMODSED ---
Moderate Sedation Note-Pt Data Patient Data Allergies Allergy/AdvReac Type Severity Reaction Status Date / Time No Known Allergies Allergy Verified 09/06/25 12:31 Home Medications ?Medication ?Instructions ?Recorded ?Confirmed ?Type fenofibrate 160 mg tablet 160 mg PO DAILY 04/03/20 09/06/25 History gabapentin 800 mg tablet 800 mg PO DAILY 04/03/20 09/06/25 History lisinopril 2.5 mg tablet 2.5 mg PO DAILY 04/03/20 09/06/25 History metformin 500 mg tablet 1,000 mg PO BID 04/03/20 09/06/25 History metoprolol tartrate 25 mg tablet 25 mg PO BID 04/03/20 09/06/25 History omega-3 fatty acids 1,000 mg 1,000 mg PO DAILY 04/03/20 09/06/25 History capsule (Fish Oil Concentrate) empagliflozin 10 mg tablet 10 mg PO DAILY 07/09/21 09/06/25 History (Jardiance) aspirin 81 mg tablet,delayed 81 mg PO QAM #30 tabs 07/11/21 09/06/25 Rx release atorvastatin 80 mg tablet 80 mg PO DAILY #30 tabs 07/11/21 09/06/25 Rx bupropion HCl 150 mg 24 hr tablet, 150 mg PO QAM 06/16/22 09/06/25 History extended release cholecalciferol (vitamin D3) 125 See Rx Instructions PO DAILY 06/16/22 09/06/25 History mcg (5,000 unit) tablet valacyclovir 500 mg tablet 1,000 mg (2 x 500 mg) PO Q8H #120 08/06/22 09/06/25 Rx tabs dulaglutide 4.5 mg/0.5 mL 4.5 mg subcut WEEKLY 07/31/25 09/06/25 History subcutaneous pen injector (Trulicity) Sedation/Anesthesia: No previous sedation/anesthesia problems (including family history). [facility] Past Medical History Medical History Diabetes Hypertension Myocardial infarction Surgical History Surgical History H/O heart artery stent Hx of appendectomy Family History Family History Father Diabetes mellitus Cerebrovascular accident Mother Family history of rheumatoid arthritis Other Family history of alcoholism Family history of obesity Social History Social History Smoking packs per day: 1 Smoking cigarettes per day: 20.0 Years smoked: 20 Smoking pack-years: 20.00 Smoking status: Current every day smoker Tobacco type: cigarettes Alcohol intake: current Drinks per week: 1 Substance use: never Substance use type: does not use Lack of Transportation: No Lack of Food: Never True Current Housing: I Have Housing Concerned About Future Housing: No Difficulty Paying Gas/Electric Bills: No Difficulty Paying for Meds: No Currently Unemployed: No Education: Decline to Answer Difficulty w/ Childcare or Family Care: No Living arrangements: alone Spiritual care concerns: No Mod Sed Physical Exam Physical Exam Pre Procedural Exam: Normal: Lungs, Heart Size, Heart Rate and Heart Rhythm Hours since solid foods: 12 Hours since liquid intake: 12 Mallampati Classification: class II Internal Medicine - PN: Obj Da Vital Signs Vital Signs: Vital Signs - 24 hr 09/09/25 10:38 Temperature 36.6 C Pulse Rate 77 Respiratory Rate 13 Blood Pressure 131/84 Pulse Oximetry 100 Oxygen Delivery Room Air Labs 09/09/25 10:31 09/09/25 10:31 Labs: Laboratory Results - last 24 hr 09/09/25 10:31 WBC 9.2 RBC 5.09 Hgb 16.2 Hct 46.5 MCV 91.4 MCH 31.8 MCHC 34.8 RDW 12.3 Plt Count 330 MPV 9.7 Immature Gran % (Auto) 0.5 Neut % (Auto) 62.1 Lymph % (Auto) 28.1 Treasure % (Auto) 5.1 Eos % (Auto) 3.5 Baso % (Auto) 0.7 Lymph # (Auto) 2.59 Treasure # (Auto) 0.5 Eos # (Auto) 0.3 Baso # (Auto) 0.1 Abs Immat Gran (auto) 0.05 H Absolute Neuts (auto) 5.7 Absolute Nucleated RBC 0.000 Nucleated RBC % 0.0 Sodium 138 Potassium 4.1 Chloride 103 Carbon Dioxide 26 Anion Gap 9 BUN 16 Creatinine 0.63 L Estim Creat Clear Calc 136 Estimated GFR > 60 Glucose 216 H Calcium 9.5 ASA Classification/Sedation ASA Classification/Sedation ASA Class: III Emergent: No Risks: Risks, benefits and alternatives explained and patient/family accepted plan for sedation. Patient re-evaluated immediately prior to sedation.
--- NOTE | 2025-09-09 13:05 | WPDCARDPROC ---
Cardiac Cath Procedure Note Date of procedure:: 09/09/25 Performing physician:: CATHETERIZATION LABORATORY REPORT Procedure Date: 09/09/2025 Referring Physician: Dr. Mojica Anesthesia: Versed and Fentanyl were ordered and given in my presence at 1148, procedure ended at 1257. Supervision of nurse, Maame Birmingham monitored moderate sedation with 2mg Versed and 300mcg Fentanyl was provided for 69 minutes. Pre-op Diagnosis: abnormal stress test Post-op Diagnosis: Abnormal stress test Procedure(s): Left heart catheterization with coronary angiography Coronary bypass angiography Percutaneous coronary intervention Intravascular ultrasound Moderate sedation Access Site: Right common femoral artery Brief History and Clinical Indications: 49-year-old man with CAD status post LCx and RCA PCI and eventual CABG (HERNANDEZ-LAD, SVG-D, SVG-OM1, SVG-rPDA), diabetes, hypertension, and hyperlipidemia who has been experiencing chest discomfort found to have an abnormal nuclear stress test for which cardiac catheterization with possible PCI had been recommended. All risks, benefits and alternatives to left heart catheterization with or without percutaneous coronary intervention was discussed at length with the patient. Risk of complications including but not limited to bleeding, infection, arrhythmia, stroke, worsening kidney function, blood loss, groin hematoma, limb loss, emergency coronary artery bypass grafting, and even were discussed with the patient and all questions were answered. The patient understood and wished to proceed. Time out called, patient name, date of , medical record number, allergies, procedure performed, identify Business Intelligence Reporting Analyst, patient and staff member concurred with accurate data, procedure carried on. Findings: LEFT HEART CATHETERIZATION FINDINGS: 1. Left main: The left main coronary artery is widely patent without any significant obstructive disease. 2. Left anterior descending: The LAD provides 3 diagonal branches. The LAD itself has 10% stenosis in its midbody and is occluded distally. D1 is a moderate caliber vessel supplying a moderate size territory with 90% proximal stenosis. 3. Left circumflex: The left circumflex artery is a nondominant vessel that provides 5 OM branches. There is a stent between OM1 and OM3 with 90-95% ISR. 4. Right coronary artery: The RCA is a moderate caliber dominant vessel with a stent in the proximal to ostial body with 80-90% ISR towards the distal end of the stent. The distal RCA has a 90% stenosis however becomes a small caliber vessel not amenable to PCI. 5. Graft Anatomy A: HERNANDEZ-LAD patent B: SVG-OM1 occluded stump C: SVG-D occluded stump D: SVG-rPDA occluded stump 5. Left ventricle: A. End-diastolic pressure 17 mmHg. B. LV gram deferred. C. No significant gradient across aortic valve on catheter pullback. 6. Opening AO pressure 118/78 and closing AO pressure 113/68 Description of Procedure: Informed consent signed and placed in the chart. Patient transferred to sugar laboratory assistant room. Prepped and draped in usual sterile fashion. 2% lidocaine in right groin area. Micropuncture needle used to access right common femoral artery with Seldinger technique under fluoroscopic and ultrasound guidance. J wire advanced, micropuncture cannula placed, and 5F sheath was placed. A JL4 diagnostic catheter was used to engage the left main coronary artery. A JR4 diagnostic catheter was used to engage the HERNANDEZ, SVG-OM1, SVG-D, and used to cross the aortic valve. The JR4 diagnostic catheter was unable to definitively determine if the SVG-RPDA graft is occluded. A 5F pigtail was used for aortic root angiogram. Multiple orthogonal angiogram obtained and reviewed. Procedure Description for PCI: The 5F sheath was upsized to a 6F sheath and iliofemoral angiogram was performed confirming adequate access for vascular closure device. Heparin was used for anticoagulation (ACT maintained above 250) Patient loaded with heparin at 80 units/kg. 6F EBU 3.5 guide catheter was used to intubate the left main coronary artery. 0.014 Runthrough coronary wire was passed in to the OM 5 vessel. The lesion was pre-dilated with a 3.5 x 15mm Angiosculpt cutting balloon inflated to 14atm. IVUS was used to assess the vessel and mostly showed mixed neoatherosclerotic and intimal hyperplasia. A 3.5 x 22mm Orsiro YESENIA was then deployed at 16atm; post dilated with a 3.75 x 8mm NC to 22atm with excellent angiographic and IVUS results. Intracoronary NTG was administered. All intracoronary equipment was then removed under fluoroscopy. Final angiography showed excellent angiographic results. Hemostasis was achieved with Angio-Seal device. Pre-procedure - BANDAR 3 flow Post-procedure - BANDAR 3 flow No angiographic complications identified. Assessment: Successful PCI to Lcx ISR with 3.5 x 22mm Orsiro YESENIA; post dilated with 3.75 x 8mm NC to 22atm with excellent angiographic and IVUS results. Post Operative Condition: Stable No significant blood loss Disposition: Home Plan: DAPT for a minimum of 1 year. Aggressive medical management of residual coronary artery disease. The above findings were discussed with the referring physician. Adelfo Pennington Interventional Cardiology
== END 2025-09-09 17:54 | disposition home or self-care (01) ==
PROVIDERS: Visit Provider Internal Medicine
PROC: 4A023N7 Measurement of Cardiac Sampling and Pressure, Left Heart, Percutaneous Approach (ICD-10-PCS; CPT 93459; principal; 2025-09-09 11:30)
PROC: 027034Z Dilation of Coronary Artery, One Artery with Drug-eluting Intraluminal Device, Percutaneous Approach (ICD-10-PCS; CPT 92928; 2025-09-09 11:30)
DX: I25.10 Atherosclerotic heart disease of native coronary artery without angina pectoris (principal); I25.810 Atherosclerosis of coronary artery bypass graft(s) without angina pectoris; R94.39 Abnormal result of other cardiovascular function study; T82.855A Stenosis of coronary artery stent, initial encounter; Y83.8 Other surgical procedures as the cause of abnormal reaction of the patient, or of later complication, without mention of misadventure at the time of the procedure
CPT/HCPCS: 36415; 80048; 85025; 92978; 93459; A9270; C1725; C1753; C1760; C1769; C1874; C1887; C1894; C9600; G0269; J1644; J2003; J2250; J2305; J3010; J7040